=== PATIENT | female | born 1955 | race Hispanic/Latino ===

== ENCOUNTER 2018-08-26 13:02 | Emergency (ER) | payer OTHER ==
[2018-08-26 13:41] LABS: Urine Blood TRACE (NEG); Urine Glucose NEGATIVE (NEG); Urine Protein NEGATIVE (NEG); Urine Specific Gravity 1.015 (1.005-1.030); Urine pH 8.5 (5.0-7.0)
[2018-08-26] MEDS ORDERED: NA CHLORIDE 0.9% 500 ML ONE (14:03)
--- NOTE | 2018-08-26 14:11 | RAD REPORT ---
EXAM DESCRIPTION: RAD - Chest Single View - 08/26/2018 2:06 pm CLINICAL HISTORY: Cough;Abdominal distention Chest pain. COMPARISON: CHEST PA AND LAT 2 VIEW dated 11/10/2005 FINDINGS: Portable technique limits examination quality. Mild interstitial pulmonary edema is present. The heart is normal in size. No displaced fractures. IMPRESSION: No acute intrathoracic process suspected.
--- NOTE | 2018-08-26 14:27 | RAD REPORT ---
EXAM DESCRIPTION: CT - Stone Protocol - 08/26/2018 2:19 pm CLINICAL HISTORY: Flank pain. ABD PAIN COMPARISON: Chest Single View dated 08/26/2018; ABDOMINAL EXAM COMPLETE dated 10/18/2010 TECHNIQUE: Axial images were obtained without oral or IV contrast. Lack of contrast limits solid org an and vascular assessment. The [id number] spans the entirety of the system partially obscuring uppermost abdomen and lung bases. Coronal reformatted images were obtained and reviewed. All CT scans are performed using dose optimization technique as appropriate and may include automated exposure control or mA/KV adjustment according to patient size. FINDINGS: The lung bases are emphysematous with small juxtapleural nodules present. Small hiatal her ezra. Poorly defined low-density lesion in the right lobe liver superiorly measuring 19 mm is seen. Assessm ent is limited by lack contrast, however a lesion was present in this location prior sonography from 2010. No intrahepatic biliary dilatation.The spleen, pancreas and adrenal glands within normal limits . 4 cm benign-appearing left renal cyst is present. No urinary tract stones or obstructive uropathy i dentified. No pathologic lymphadenopathy in the abdomen or pelvis. Fat containing inguinal hernias a re present bilaterally, larger on the right. No bowel obstruction, free air, free fluid or abscess. Normal appendix noted. No significant bony abnormality. IMPRESSION: No acute or worrisome intra-abdominopelvic finding.
[2018-08-26 14:30] LABS: Absolute Lymphocytes (CBC) 2.2 K/uL (0.7-4.9); Absolute Monocytes 0.5 K/uL (0.1-1.3); Absolute Neutrophil 2.1 K/uL (1.8-8.0); Basophils % 1.3 % (0-1.3); Hematocrit 32.8 % (36.0-45.0); Lymphocytes % 42.7 % (15.3-44.8); MCH 32.5 pg (27.0-35.0); MCV 93.4 fL (80-100); MPV 8.3 fL (7.6-11.3); Monocytes % 9.6 % (3.3-12.3); RBC Red Blood Cell Count 3.51 M/uL (3.86-4.86)
[2018-08-26 14:43] LABS: ALT/SGPT 38 U/L (12-78); AST/SGOT 42 U/L (15-37); Albumin 3.5 g/dL (3.4-5.0); Alkaline Phosphatase 61 U/L (45-117); BUN Blood Urea Nitrogen 14 mg/dL (7-18); Bicarbonate 27 mmol/L (21-32); Bilirubin Direct 0.2 mg/dL (0-0.2); Bilirubin Total 0.7 mg/dL (0.2-1.0); Glucose Level 108 mg/dL (74-106); Lipase 172 U/L (73-393); NT PRO-BNP 312 pg/mL (<125); Potassium 3.1 mmol/L (3.5-5.1); Protein, Total 7.7 g/dL (6.4-8.2); Sodium Level 141 mmol/L (136-145); Troponin (Emerg Dept Use Only) < 0.02 ng/mL (0.0-0.045)
--- NOTE | 2018-08-26 15:04 | EDPHYS ---
Physician Documentation [facility] Name: Diana Boyle Age: 63 yrs Sex: Female : 1955 Arrival Date: 08/26/2018 Time: 13:05 Bed 19 Private MD: ED Physician Artis Rodney HPI: 08/26 13:50 This 63 yrs old Female presents to ER via Ambulatory with complaints of deric Abdominal Pain, Back Pain. 13:50 The patient presents with pain that is acute, that is chronic. The symptoms are located deric in the low back, left low back. Onset: The symptoms/episode began/occurred 3 day(s) ago. The pain radiates to the right low back. Associated signs and symptoms: The patient has no apparent associated signs or symptoms. The problem was sustained from unknown cause. Modifying factors: The patient symptoms are alleviated by nothing, the patient symptoms are aggravated by nothing. Severity of symptoms: At their worst the symptoms were mild. The patient has not experienced similar symptoms in the past. Historical: - Allergies: 13:27 PENICILLINS; aj1 - Home Meds: 13:27 losartan 100 mg oral tab 1 tab once daily [Active]; hydrochlorothiazide 50 mg Oral tab aj1 1 tab once daily [Active]; dapsone 25 mg Oral tab 1 tab once daily [Active]; - PMHx: 13:27 Hypertension; aj1 - Immunization history:: Flu vaccine is up to date. - Social history:: Smoking status: Patient/guardian denies using tobacco. - Ebola Screening: : Patient denies travel to an Ebola-affected area in the 21 days before illness onset. - Family history:: not pertinent. ROS: 13:50 Constitutional: Negative for fever, chills, and weight loss, Eyes: Negative for injury, deirc pain, redness, and discharge, ENT: Negative for injury, pain, and discharge, Neck: Negative for injury, pain, and swelling, Cardiovascular: Negative for chest pain, palpitations, and edema, Respiratory: Negative for shortness of breath, cough, wheezing, and pleuritic chest pain, Back: Negative for injury and pain, : Negative for injury, bleeding, discharge, and swelling, MS/Extremity: Negative for injury and deformity, Skin: Negative for injury, rash, and discoloration, Neuro: Negative for headache, weakness, numbness, tingling, and seizure, Psych: Negative for depression, anxiety, suicide ideation, homicidal ideation, and hallucinations, Allergy/Immunology: Negative for hives, rash, and allergies, Endocrine: Negative for neck swelling, polydipsia, polyuria, polyphagia, and marked weight changes, Hematologic/Lymphatic: Negative for swollen nodes, abnormal bleeding, and unusual bruising. 13:50 Abdomen/GI: Positive for abdominal pain, of the right lower quadrant. Exam: 13:50 Constitutional: This is a well developed, well nourished patient who is awake, alert, deric and in no acute distress. Head/Face: Normocephalic, atraumatic. Eyes: Pupils equal round and reactive to light, extra-ocular motions intact. Lids and lashes normal. Conjunctiva and sclera are non-icteric and not injected. Cornea within normal limits. Periorbital areas with no swelling, redness, or edema. ENT: Nares patent. No nasal discharge, no septal abnormalities noted. Tympanic membranes are normal and external auditory canals are clear. Oropharynx with no redness, swelling, or masses, exudates, or evidence of obstruction, uvula midline. Mucous membranes moist. Neck: Trachea midline, no thyromegaly or masses palpated, and no cervical lymphadenopathy. Supple, full range of motion without nuchal rigidity, or vertebral point tenderness. No Meningismus. Chest/axilla: Normal chest wall appearance and motion. Nontender with no deformity. No lesions are appreciated. Cardiovascular: Regular rate and rhythm with a normal S1 and S2. No gallops, murmurs, or rubs. Normal PMI, no JVD. No pulse deficits. Respiratory: Lungs have equal breath sounds bilaterally, clear to auscultation and percussion. No rales, rhonchi or wheezes noted. No increased work of breathing, no retractions or nasal flaring. Back: No spinal tenderness. No costovertebral tenderness. Full range of motion. Female : Normal external genitalia. Skin: Warm, dry with normal turgor. Normal color with no rashes, no lesions, and no evidence of cellulitis. MS/ Extremity: Pulses equal, no cyanosis. Neurovascular intact. Full, normal range of motion. Neuro: Awake and alert, GCS 15, oriented to person, place, time, and situation. Cranial nerves II-XII grossly intact. Motor strength 5/5 in all extremities. Sensory grossly intact. Cerebellar exam normal. Normal gait. Psych: Awake, alert, with orientation to person, place and time. Behavior, mood, and affect are within normal limits. 13:50 Abdomen/GI: Inspection: abdomen appears normal, Bowel sounds: normal, Palpation: mild abdominal tenderness, in the right lower quadrant, Liver: no appreciated palpable abnormalities. Vital Signs: 13:27 BP 156 / 100; Pulse 80; Resp 18; Temp 97.6; Pulse Ox 96% on R/A; Weight 58.97 kg (R); aj1 Pain 8/10; 13:54 BP 159 / 61; Pulse 78; Resp 18; Pulse Ox 99% on R/A; Pain 7/10; em 15:25 BP 147 / 59; Pulse 79; Resp 16; Pulse Ox 98% on R/A; mt MDM: 13:32 Patient medically screened. [facility] 13:53 Data reviewed: vital signs, nurses notes, lab test result(s), EKG, radiologic studies. [facility] 08/26 13:38 Order name: Urine Dipstick--Ancillary (enter results); Complete Time: 13:47 08/26 13:50 Order name: Basic Metabolic Panel; Complete Time: 14:57 [facility] 08/26 13:50 Order name: CBC with Diff; Complete Time: 14:57 [facility] 08/26 13:50 Order name: LFT's; Complete Time: 14:57 [facility] 08/26 13:50 Order name: Magnesium; Complete Time: 14:57 [facility] 08/26 13:50 Order name: NT PRO-BNP; Complete Time: 14:57 [facility] 08/26 13:50 Order name: PT-INR; Complete Time: 14:57 [facility] 08/26 13:50 Order name: Troponin (emerg Dept Use Only); Complete Time: 14:57 [facility] 08/26 13:50 Order name: XRAY Chest (1 view); Complete Time: 14:57 [facility] 08/26 13:50 Order name: Lipase; Complete Time: 14:57 [facility] 08/26 13:50 Order name: CT Stone Protocol; Complete Time: 14:57 [facility] 08/26 13:50 Order name: EKG; Complete Time: 13:50 [facility] 08/26 13:50 Order name: Cardiac monitoring; Complete Time: 14:05 [facility] 08/26 13:50 Order name: EKG - Nurse/Tech; Complete Time: 14:05 [facility] 08/26 13:50 Order name: IV Saline Lock; Complete Time: 14:24 [facility] 08/26 13:50 Order name: Labs collected and sent; Complete Time: 14:24 [facility] 08/26 13:50 Order name: O2 Per Protocol; Complete Time: 14:05 [facility] 08/26 13:50 Order name: O2 Sat Monitoring; Complete Time: 14:05 [facility] 08/26 13:50 Order name: Urine Dipstick-Ancillary (obtain specimen); Complete Time: 13:54 [facility] Administered Medications: Discontinued: NS 0.9% 500 ml IV at bolus once : Drug: NS 0.9% 500 ml Route: IV; Rate: bolus; Site: right forearm; em Disposition: 08/26/18 15:03 Discharged to Home. Impression: Abdominal tenderness, Bilateral inguinal hernia, without obstruction or gangrene, Hypokalemia, Essential (primary) hypertension, Anemia, unspecified, Unspecified combined systolic (congestive) and diastolic (congestive) heart failure. - Condition is Stable. - Discharge Instructions: Abdominal Pain, Adult, Anemia, Nonspecific, Heart Failure, Potassium Content of Foods, Hernia, Adult, Hypertension, Inguinal Hernia, Adult, Syjk-nu-Ydwo, Abdominal Pain, Adult, Hlwx-hc-Wrir, Hypertension, Uben-ji-Zczo, How to Take Your Blood Pressure, Fbnz-oc-Jkhc, Hernia, Adult, Pksy-nj-Fvca, Aspirin and Your Heart, Heart Failure, Ldap-oj-Fgfm, Inguinal Hernia, Adult, Managing Your Hypertension. - Prescriptions for Potassium Chloride 20 meq Oral Packet - take 1 packet by ORAL route once daily 1 packet in 6 (six) ounces of water or juice; Take after meal; 30 packet. - Medication Reconciliation Form, Thank You Letter, Antibiotic Education, Prescription Opioid Use form. - Follow up: Private Physician; When: 2 - 3 days; Reason: Recheck today's complaints, Continuance of care, Re-evaluation by your physician. Follow up: Benij Linares MD; When: 2 - 3 days; Reason: Recheck today's complaints, Re-evaluation by your physician. Follow up: Jonah Galeana MD; When: 2 - 3 days; Reason: Recheck today's complaints, Re-evaluation by your physician. - Problem is new. - Symptoms have improved. Signatures: Dispatcher [employer] America Rodriguez RN RN Artis Ram MD MD cha Munoz, Edgar, IMPORT EXPORT CLERK IMPORT EXPORT CLERK em Corrections: (The following items were deleted from the chart) 15: 15:08/26/2018 15:03 Discharged to Home. Impression: Abdominal tenderness; Bilateral deric inguinal hernia, without obstruction or gangrene; Hypokalemia; Essential (primary) hypertension; Anemia, unspecified; Unspecified combined systolic (congestive) and diastolic (congestive) heart failure. Condition is Stable. Forms are Medication Reconciliation Form, Thank You Letter, Antibiotic Education, Prescription Opioid Use. Follow up: Private Physician; When: 2 - 3 days; Reason: Recheck today's complaints, Continuance of care, Re-evaluation by your physician. Problem is new. Symptoms have improved. [facility] 15: 15:08/26/2018 15:03 Discharged to Home. Impression: Abdominal tenderness; Bilateral deric inguinal hernia, without obstruction or gangrene; Hypokalemia; Essential (primary) hypertension; Anemia, unspecified; Unspecified combined systolic (congestive) and diastolic (congestive) heart failure. Condition is Stable. Discharge Instructions: Abdominal Pain, Adult, Anemia, Nonspecific, Heart Failure, Potassium Content of Foods, Hernia, Adult, Hypertension, Inguinal Hernia, Adult, Orny-sv-Gagd, Abdominal Pain, Adult, Vjcq-ap-Awkr, Hypertension, Nmsj-xj-Ruxd, How to Take Your Blood Pressure, Ocpm-xr-Tuoj, Hernia, Adult, Arrw-fa-Gytn, Aspirin and Your Heart, Heart Failure, Mcck-jn-Vimk, Inguinal Hernia, Adult, Managing Your Hypertension. Prescriptions for Potassium Chloride 20 meq Oral Packet - take 1 packet by ORAL route once daily 1 packet in 6 (six) ounces of water or juice; Take after meal; 30 packet. and Forms are Medication Reconciliation Form, Thank You Letter, Antibiotic Education, Prescription Opioid Use. Follow up: Private Physician; When: 2 - 3 days; Reason: Recheck today's complaints, Continuance of care, Re-evaluation by your physician. Follow up: Benji Linares; When: 2 - 3 days; Reason: Recheck today's complaints, Re-evaluation by your physician. Problem is new. Symptoms have improved. [facility] 15:44 15:08/26/2018 15:03 Discharged to Home. Impression: Abdominal tenderness; Bilateral em inguinal hernia, without obstruction or gangrene; Hypokalemia; Essential (primary) hypertension; Anemia, unspecified; Unspecified combined systolic (congestive) and diastolic (congestive) heart failure. Condition is Stable. Discharge Instructions: Abdominal Pain, Adult, Anemia, Nonspecific, Heart Failure, Potassium Content of Foods, Hernia, Adult, Hypertension, Inguinal Hernia, Adult, Klef-qw-Dbzd, Abdominal Pain, Adult, Phkj-mb-Kgqs, Hypertension, Dznc-dg-Lblj, How to Take Your Blood Pressure, Csft-kq-Okij, Hernia, Adult, Koxk-sy-Naxi, Aspirin and Your Heart, Heart Failure, Tsrg-pe-Rmex, Inguinal Hernia, Adult, Managing Your Hypertension. Prescriptions for Potassium Chloride 20 meq Oral Packet - take 1 packet by ORAL route once daily 1 packet in 6 (six) ounces of water or juice; Take after meal; 30 packet. and Forms are Medication Reconciliation Form, Thank You Letter, Antibiotic Education, Prescription Opioid Use. Follow up: Private Physician; When: 2 - 3 days; Reason: Recheck today's complaints, Continuance of care, Re-evaluation by your physician. Follow up: Benji Linares; When: 2 - 3 days; Reason: Recheck today's complaints, Re-evaluation by your physician. Follow up: Jonah Galeana; When: 2 - 3 days; Reason: Recheck today's complaints, Re-evaluation by your physician. Problem is new. Symptoms have improved. deric
--- NOTE | 2018-08-26 15:04 | ER ---
Nurse's Notes [facility] Name: Diana Boyle Age: 63 yrs Sex: Female : 1955 Arrival Date: 08/26/2018 Time: 13:05 Bed 19 Private MD: Diagnosis: Abdominal tenderness;Bilateral inguinal hernia, without obstruction or gangrene;Hypokalemia;Essential (primary) hypertension;Anemia, unspecified;Unspecified combined systolic (congestive) and diastolic (congestive) heart failure Presentation: 08/26 13:24 Presenting complaint: Patient states: Abdominal pain for the past 6 months, but today aj1 it is worse. She has seen her doctor about this pain, but they have not been able to figure out the cause. Denies N/V/D. Denies fever. Transition of care: patient was not received from another setting of care. Onset of symptoms was January 2018. Risk Assessment: Do you want to hurt yourself or someone else? Patient reports no desire to harm self or others. Initial Sepsis Screen: Does the patient meet any 2 criteria? No. Patient's initial sepsis screen is negative. Does the patient have a suspected source of infection? No. Patient's initial sepsis screen is negative. Care prior to arrival: None. 13:24 Method Of Arrival: Ambulatory aj1 13:24 Acuity: JIMENEZ 3 aj1 Triage Assessment: 13:27 General: Appears in no apparent distress. comfortable, Behavior is calm, cooperative, aj1 appropriate for age. Pain: Complains of pain in abdomen Pain currently is 8 out of 10 on a pain scale. Neuro: Level of Consciousness is awake, alert, obeys commands. Cardiovascular: Patient's skin is warm and dry. Respiratory: Airway is patent Respiratory effort is even, unlabored, Respiratory pattern is regular, symmetrical. GI: Patient currently denies diarrhea, nausea, vomiting. Historical: - Allergies: 13:27 PENICILLINS; aj1 - Home Meds: 13:27 losartan 100 mg oral tab 1 tab once daily [Active]; hydrochlorothiazide 50 mg Oral tab aj1 1 tab once daily [Active]; dapsone 25 mg Oral tab 1 tab once daily [Active]; - PMHx: 13:27 Hypertension; aj1 - Immunization history:: Flu vaccine is up to date. - Social history:: Smoking status: Patient/guardian denies using tobacco. - Ebola Screening: : Patient denies travel to an Ebola-affected area in the 21 days before illness onset. - Family history:: not pertinent. Screenin:48 Abuse screen: Denies threats or abuse. Nutritional screening: No deficits noted. em Tuberculosis screening: No symptoms or risk factors identified. Fall Risk None identified. Assessment: 13:48 General: Appears in no apparent distress. comfortable, Behavior is calm, cooperative, em Denies fever. Pain: Complains of pain in right femoral area. Neuro: Level of Consciousness is awake, alert, obeys commands, Oriented to person, place, time, situation. Cardiovascular: Denies chest pain, Capillary refill < 3 seconds Patient's skin is warm and dry. Respiratory: Airway is patent Respiratory effort is even, unlabored, Respiratory pattern is regular, symmetrical, Breath sounds are clear bilaterally. GI: Abdomen is round non-distended, Bowel sounds present X 4 quads. Abd is soft and non tender X 4 quads. : No signs and/or symptoms were reported regarding the genitourinary system. EENT: No signs and/or symptoms were reported regarding the EENT system. Derm: Skin is intact, Skin is pink, warm \T\ dry. Musculoskeletal: Range of motion: intact in all extremities. 14:00 Reassessment: Patient appears in no apparent distress at this time. I agree with above iw assessment by Ciro Umana LVN. 14:41 Reassessment: Patient appears in no apparent distress at this time. Patient and/or em family updated on plan of care and expected duration. Pain level reassessed. Patient is alert, oriented x 3, equal unlabored respirations, skin warm/dry/pink. 15:40 Reassessment: Patient appears in no apparent distress at this time. Patient and/or em family updated on plan of care and expected duration. Pain level reassessed. Patient is alert, oriented x 3, equal unlabored respirations, skin warm/dry/pink. Vital Signs: 13:27 BP 156 / 100; Pulse 80; Resp 18; Temp 97.6; Pulse Ox 96% on R/A; Weight 58.97 kg (R); aj1 Pain 8/10; 13:54 BP 159 / 61; Pulse 78; Resp 18; Pulse Ox 99% on R/A; Pain 7/10; em 15:25 BP 147 / 59; Pulse 79; Resp 16; Pulse Ox 98% on R/A; mt ED Course: 13:05 Patient arrived in ED. mr 13:25 Triage completed. aj1 13:27 Arm band placed on Patient placed in an exam room. aj1 13:31 Ciro Umana LVN is Primary Nurse. em 13:32 Artis Rodney MD is Attending Physician. [facility] 13:48 Patient has correct armband on for positive identification. Bed in low position. Call em light in reach. Adult w/ patient. 14:06 XRAY Chest (1 view) In Process Unspecified. EDMS 14:10 Initial lab(s) drawn, by nh, sent to lab. Inserted saline lock: 20 gauge in right em antecubital area, using aseptic technique. Blood collected. 14:11 CT completed. Patient moved to CT via wheelchair. Patient moved back from CT. 14:19 CT Stone Protocol In Process Unspecified. EDMS 15:04 Benji Linares MD is Referral Physician. [facility] 15:05 Jonah Galeana MD is Referral Physician. [facility] 15:43 No provider procedures requiring assistance completed. IV discontinued, intact, em bleeding controlled, No redness/swelling at site. Pressure dressing applied. Administered Medications: Discontinued: NS 0.9% 500 ml IV at bolus once 14:25 Drug: NS 0.9% 500 ml Route: IV; Rate: bolus; Site: right forearm; em Outcome: 15:03 Discharge ordered by . [facility] 15:43 Discharged to home ambulatory, with family. em 15:43 Condition: good 15:43 Discharge instructions given to patient, Instructed on discharge instructions, follow up and referral plans. medication usage, Demonstrated understanding of instructions, follow-up care, medications, Prescriptions given X 1. 15:44 Patient left the ED. em Signatures: Dispatcher [employer] America Douglas, RN RN aj1 Artis Rodney MD MD cha Rivera, Iris mr Anna, Candie Ciro Umana LVN LVN em Dee Dee Calle, RN YOVANY Malik, Laurie mt
[2018-08-26] MEDS ORDERED: POTASSIUM 25 MEQ EFFERV TAB ONE (15:18)
--- NOTE | 2018-08-27 07:36 | EKG ---
Test Date: 2018-08-26 Test Time: 13:53:43 Drupal Programmer: NEGRITO MEASUREMENT RESULTS: Intervals: Rate: 77 TN: 154 QRSD: 76 QT: 360 QTc: 407 [place]: P: 62 TN: 154 QRS: 50 T: 53 INTERPRETIVE STATEMENTS: Normal sinus rhythm Normal ECG Compared to ECG 12/04/2010 07:00:17 No significant changes Electronically Signed On 08-27-18 07:36:15 [employer]ISION [employer] SPECIALIST by Benji Linares
== END 2018-08-26 15:44 | disposition home or self-care (01) ==
LOC: ER 13:02
DX: K40.20 Bilateral inguinal hernia, without obstruction or gangrene, not specified as recurrent (principal); E87.6 Hypokalemia; D64.9 Anemia, unspecified; I10 Essential (primary) hypertension; I50.40 Unspecified combined systolic (congestive) and diastolic (congestive) heart failure; Z88.0 Allergy status to penicillin
CPT/HCPCS: 36415; 71045; 74176; 76377; 80048; 80076; 81003; 83690; 83735; 83880; 84484; 85025; 85610; 93005; 99284

== ENCOUNTER 2021-05-15 20:05 | Emergency (ER) | payer OTHER ==
--- OUTSIDE RECORDS SUMMARY | 2021-05-15 20:13 | XMS REPORT | Continuity of Care Document ---
:1955 Author Organization [facility] t Address [address] [id number] Care Team Providers Name Role Phone RISHI MOON M.D. Attending Clinician Unavailable Problems Condition Condition Condition Status Onset Resolution Last Treating Co mments Source Name Details Category Date Date Treatment Clinician Date Encounter Encounter Problem Active Uni vers for for [id number].[id number] it[place] kathleen kathleen Physici examinatio examinatio an s n with n with Papanicola Papanicola ou smear ou smear of cervix of cervix Visit for Visit for Problem Active Uni vers screening screening [id number] [place] [facility] [place] Herpes Problem Active 2021-05-05 Mem[facility] ia simplex 02:02:12 l Herpes [place] simplex Active Problem 05/05/2021 Patrice Jostinaji Asthma, Problem Active 2021-05-05 Matteo martha intermitte 02:02:12 l nt Asthma, [place] intermitte nt Active Problem 1 Patrice Mussaji Asthma Problem Active 2021-05-05 Memor ia with 02:02:12 l exacerbati Asthma Herm lobo on with exacerbati on Active Problem 1 Patrice Jostinatherese Erythema Problem Active 2018-09-18 Mem oria multiforme 03:04:43 l , Erythema Sree n unspecifie multiforme d , unspecifie d Active Problem 09/18/2018 Patrice Jostinatherese Hypertensi Problem Active 2021-05-05 M emoria ve heart 02:02:12 l disease [place] without Hypertensi heart ve heart failure disease without heart failure Active Problem 05/05/2021 Patrice Jostinaji Pure Problem Active 2021-05-05 Mem[facility] ia hyperchole 02:02:12 l sterolemia Pure Sree n hyperchole sterolemia Active Problem 05/05/2021 Patrice Mendoza Asthma Problem Active 2021-05-05 Memor ia without 02:02:12 l acute Asthma Berto exacerbati without on acute exacerbati on Active Problem Patrice Mendoza Vitamin D Problem Active 2021-05-05 Me moria deficiency 02:02:12 l Vitamin [place] D deficiency Active Problem 05/05/2021 Patrice Mendoza Body mass Problem Active 2018-09-18 Me moria index 03:04:43 l 26.0-26.9, Body Sree n adult mass index 26.0-26.9, adult Active Problem 09/18/2018 Patrice Mendoza Erythema Problem Active 2021-05-05 Mem oria multiforme 02:02:12 l Erythema Sree n multiforme Active Problem 05/05/2021 Patrice Mendoza Dyspepsia Problem Active 2021-05-05 Me moria and 02:02:12 l disorder [place] of Dyspepsia function and of stomach disorder of function of stomach Active Problem 05/05/2021 Patrice Mendoza BMI Problem Active 2021-05-05 Memor ia 27.0-27.9, 02:02:12 l adult BMI Berto 27.0-27.9, adult Active Problem 05/05/2021 Patrice Mendoza Herniated Problem Active 2021-05-05 Me moria interverte 02:02:12 l bral disc Berto of lumbar Herniated spine interverte bral disc of lumbar spine Active Problem 05/05/2021 Patrice Mendoza Seasonal Problem Active 2021-05-05 Mem oria allergies 02:02:12 l Seasonal Sree n allergies Active Problem 05/05/2021 Patrice Mendoza Osteoporos Problem Active 2021-05-05 M emoria is 02:02:12 l Berto Osteoporos is Active Problem Patrice Mendoza Right Problem Active 2021-05-05 Memor ia inguinal 02:02:12 l hernia Right Berto inguinal hernia Active Problem 05/05/2021 Patrice Mendoza BMI Problem Active 2021-05-05 Memor ia 28.0-28.9, 02:02:12 l adult BMI [place] 28.0-28.9, adult Active Problem 05/05/2021 Patrice Mendoza Neck pain Diagnosis Active 2018-07-31 Memoria 02:06:47 l Neck Berto pain Active Diagnosis 07/31/2018 Patrice Mendoza Lower back Diagnosis Active 2018-09-11 Memoria pain 03:02:05 l Lower Berto back pain Active Diagnosis 09/11/2018 Patrice Mendoza Vertigo Diagnosis Active 2020-03-10 Me moria 02:05:40 l Vertigo [place] Active Diagnosis 03/10/2020 Patrice Mendoza Right Diagnosis Active 2021-02-23 Mem oria groin pain 02:16:31 l Right [place] groin pain Active Diagnosis 02/23/2021 Patrice Mendoza Cough Diagnosis Active 2019-06-08 Mem oria 02:03:49 l Cough Berto Active Diagnosis 06/08/2019 Patrice Mendoza Hepatitis Diagnosis Active 2018-09-18 Memoria C 03:04:43 l Screening Breto 1947 to Hepatitis 1967 (53 C to 73) Screening 1947 to 1967 (53 to 73) Active Diagnosis 09/18/2018 Patrice Mendoza Prediabete Problem Active 2021-05-05 M emoria s 02:02:12 l B[place] Prediabete s Active Problem 05/05/2021 Patrice Mendoza Breast Diagnosis Active 2021-02-23 Mem oria cancer 02:11:34 l screening Breast Meagan nn cancer screening Active Diagnosis 02/23/2021 Patrice Mendoza Chest pain Diagnosis Active 2021-01-11 Memoria 02:04:14 l Chest Berto pain Active Diagnosis 01/11/2021 Patrice Mendoza Body Mass Problem Active 2016-04-27 Me moria Index 02:01:18 l 26.0-26.9, Body Sree n adult Mass Index 26.0-26.9, adult Active Problem 04/27/2016 Patrice Mendoza Hypertensi Problem Active 2016-04-27 M emoria on, 02:01:18 l uncontroll Sree n ed Hypertensi on, uncontroll ed Active Problem 6 Patrice Mendoza Hyperchole Problem Active 2016-07-23 M emoria steremia 02:13:06 l [place] Hyperchole steremia Active Problem 07/23/2016 Patrice Mendoza PreDiabete Problem Active 2016-04-27 M emoria s 02:01:18 l [place] PreDiabete s Active Problem 04/27/2016 Patrice Mendoza Vitamin D Problem Active 2016-04-27 Me moria Deficiency 02:01:18 l Vitamin Berto D Deficiency Active Problem 04/27/2016 Patrice Mendoza Need for Diagnosis Active 2021-02-23 M emoria prophylact 02:11:34 l ic Need for Sree n vaccinatio prophylact n and ic inoculatio vaccinatio n against n and influenza inoculatio n against influenza Active Diagnosis 02/23/2021 Patrice Mendoza External Diagnosis Active 2021-02-23 M emoria hemorrhoid 02:11:34 l External Sree n hemorrhoid Active Diagnosis 02/23/2021 Patrice Mendoza Screening Diagnosis Active 2021-02-23 Memoria for 02:11:34 l osteoporos Sree n is Screening for osteoporos is Active Diagnosis 02/23/2021 Patrice Mendoza Abnormal Problem Active 2021-05-05 Mem oria mammogram 02:02:12 l of right Abnormal Herm lobo breast mammogram of right breast Active Problem 05/05/2021 Patrice Mendoza Breast Diagnosis Active 2021-04-24 Mem oria mass, 02:02:57 l right Breast Berto mass, right Active Diagnosis 04/24/2021 Patrice Rosatherese Pharyngiti Diagnosis Active 2021-04-10 Memoria s 02:04:46 l [place] Pharyngiti s Active Diagnosis 04/10/2021 Patrice Mendoza URI with Diagnosis Active 2021-04-10 M emoria cough and 02:04:46 l congestion URI with He rmann cough and congestion Active Diagnosis 04/10/2021 Patrice Frankellarry Unspecifie Diagnosis Active 2021-04-16 Memoria d lump in 02:00:19 l the right [place] breast, Unspecifie upper d lump in outer the right quadrant breast, upper outer quadrant Active Diagnosis 04/16/2021 Patrice Rosatherese URI (upper Diagnosis Active 2016-11-08 Memoria respirator 03:25:20 l y URI [place] infection) (upper respirator y infection) Active Diagnosis 11/08/2016 Patrice Mendoza Prediabete Diagnosis Active 2021-02-23 Memoria s DO NOT 02:16:31 l USE Berto Prediabete s DO NOT USE Active Diagnosis 02/23/2021 Patrice Mendoza Routine Diagnosis Active 2021-02-23 Me moria general 02:16:31 l medical Routine Sree n examinatio general n at a [facility] health examinatio care n at a facility health care facility Active Diagnosis 02/23/2021 Patrice Mendoza 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 Family History Family Member Diagnosis Comments Start Date Stop Date Source Mother Family history of [facility] hypertension Physicians Social History Social Habit Start Date Stop Date Quantity Comments Source TobaccoUse: 2016-10-19 00:00:00 2016-10-19 Matteo rial [place] 00:00:00 Smoking Status Start Date Stop Date Source Never smoker [facility] Physicians Medications Ordered Filled Start Stop Current Ordering Indication Dosage Frequency Signature Comments Components Source Medication Medication Date Date Medication? Clinician (SIG) Name Name Vitamin D3 Yes Patrice 1 capsule Memoria 8-04 Mussaji l 02:02: [place] 12 Losartan Yes Patrice take one Me moria Potassium 8-04 Mussaji tablet by l 02:02: mouth once Berto 12 daily Meclizine Yes Patrice 1 tablet M emoria HCl 8-04 Mussaji l 02:02: B[place] 12 Alendronate Yes Patrice 1 tablet Memoria Sodium 8-04 Mussaji l 02:02: B[place] 12 Famotidine Yes Patrice 1 tablet Memoria 8-04 Mussaji l 02:02: Berto Benzonatate Yes Patrice 1 capsule Memoria 8-04 Mussaji as needed l 02:02: Berto Zithromax 0 Yes Patrice 2 tablet M emoria Z-Saulo 8-04 Mussaji on the l 02:02: first day, Berto 12 then 1 tablet daily for 4 days Symbicort 0 Yes Patrice 2 puffs Me moria 5-25 Mussaji l 02:16: [place] Triamcinolo Yes Patrice 1 Mem oria ne 5-25 Mussaji applicatio l Acetonide 02:16: n [place] sparingly to affected area Ventolin Yes Patrice INHALE TWO Memoria HFA 5-25 Mussaji PUFFS BY l 02:16: MOUTH Berto EVERY 4 HOURS NEEDED FOR WHEEZING Lidex Yes Patrice not Memoria 5-25 Mussaji defined l 02:16: Berto Ibuprofen Yes Patrice 1 tablet M emoria 5-25 Mussaji with food l 02:16: or milk Berto 31 D3-50 Yes Patrice TAKE ONE Memor ia 5-25 Mussaji CAPSULE BY l 02:16: MOUTH ONCE Berto 31 A WEEK Dapsone Yes Patrice 1 tablet Mem oria 5-25 Mussaji l 02:16: Berto Naproxen Yes Patrice 1 tablet Me moria 5-25 Mussaji with food l 02:16: or milk as [place] 31 needed Hydrochloro Yes Patrice 1 tablet Memoria thiazide 5-25 Mussaji l 02:16: B[place] Fluticasone 0 Yes Patrice 1 spray in Memoria Propionate 5-25 Mussaji each l 02:11: nostril Berto 34 Xyzal Yes Patrice 1 tablet Memor ia 5-25 Mussaji in the l 02:11: evening B[place] 34 Anusol-HC Yes Patrice 1 Memor ia 5-25 Mussaji applicatio l 02:11: n to Berto 34 affected area Benzonatate Yes Patrice 1 capsule Memoria 5-25 Mussaji as needed l 02:11: B[place] 34 Meclizine Yes Patrice 1 tablet M emoria HCl 6-09 Mussaji l 02:05: [place] 40 Alendronate Yes Patrice 1 tablet Memoria Sodium 6-09 Mussaji l 02:05: Berto 40 Hydrochloro 2018-10 Yes Patrice 1 tablet Memoria thiazide 2-08 Mussaji l 03:03: [place] 30 Naproxen 2018-10 Yes Patrice 1 tablet Me moria 2-08 Mussaji with food l 03:03: or milk as Berto 30 needed Benzonatate 2018-10 Yes Patrice 1 capsule Memoria 2-08 Mussaji as needed l 03:03: B[place] 30 Dapsone 2017-10 Yes Patrice 1 tablet Mem oria 2-18 Mussaji l 03:04: Berto 43 Losartan 2017-10 Yes Patrice TAKE ONE Me moria Potassium 0-28 Mussaji TABLET BY l 02:02: MOUTH ONCE [place] 51 DAILY Amlodipine 2017-10 Yes Patrice 1 tablet Memoria Besylate 0-15 Mussaji l 00:00: B[place] 00 Amlodipine 2017-10 Yes Patrice 1 tablet Memoria Besylate 0-15 Mussaji l 00:00: 00 HydroCHLORO HydroCHLORO Yes R[facility]N. [facility] thiazide 25 thiazide 25 -28 i ty of MG Oral MG Oral 00:00: [place] Tablet Tablet 00 Physici ans Dapsone 25 Dapsone 25 Yes R.N. U nivers MG Oral MG Oral 6-28 ity of Tablet Tablet 00:00: [place] 00 Physici ans Losartan Losartan Yes R.N. Unive rs Potassium Potassium 6-28 ity o f 100 MG Oral 100 MG Oral 00:00: [place] Tablet Tablet 00 Physici ans Methocarbam Yes Patrice 1 tablet Memoria ol 6-16 Mussaji l 02:05: B[place] 44 Tacrolimus Yes Patrice 1 capsule Memoria 6-16 Mussaji l 02:05: [place] 44 Losartan 2018-0 Yes Patrice TAKE ONE Me moria Potassium 1-03 Mussaji TABLET BY l 03:03: MOUTH ONCE [place] 14 DAILY Valacyclovi 0 Yes Patrice 2 tablet Memoria r HCl 1-03 Mussaji l 03:01: B[place] 43 Benzonatate Yes Patrice 1 capsule Memoria 1-03 Mussaji as needed l 03:01: [place] 43 Fluocinolon Yes Patrice 1 Mem oria e Acetonide 1-03 Mussaji applicatio l 03:01: n to [place] 43 affected area as needed Naproxen 2016-10 Yes Patrice 1 tablet Me moria Sodium ER 2-07 Mussaji l 00:00: Berto 00 Doxepin HCl 2016-10 Yes Patrice 2g to Me moria 2-07 Mussaji affected l 00:00: area as [place] 00 needed Diclofenac 2016-10 Yes Patrice 3g Matteo martha Sodium 2-07 Mussaji applicatio l 00:00: n to [place] 00 affected area Metaxalone 2016-10 Yes Patrice 1 tablet Memoria 2-07 Mussaji l 00:00: B[place] 00 Lidocaine 2016-10 Yes Patrice 2g to Matteo martha 2-07 Mussaji affected l 00:00: area as [place] 00 needed Losartan Yes Patrice TAKE ONE Me moria Potassium 2-07 Mussaji TABLET BY l 03:25: MOUTH ONCE Berto 20 DAILY Valacyclovi Yes Patrice 2 tablet Memoria r HCl 2-07 Mussaji l 03:25: [place] 20 Bromfed DM 2017 No Patrice 10 ml as Memoria 2-07 Mussaji needed l 03:25: [place] 20 Vitamin D3 Yes Patrice 1 capsule Memoria 2-07 Mussaji l 03:25: [place] 20 Symbicort Yes Patrice 2 puffs Me moria 2-07 Mussaji l 03:25: [place] 20 Fluocinolon Yes Patrice 1 Mem oria e Acetonide 2-07 Mussaji applicatio l 03:25: n to [place] 20 affected area as needed Benzonatate Yes Patrice 1 capsule Memoria 2-07 Mussaji as needed l 03:25: B[place] 20 Triamcinolo 2017-0 Yes Patrice 1 Mem oria ne 2-07 Mussaji applicatio l Acetonide 03:25: n [place] 20 sparingly to affected area Montelukast 2014-1 Yes Patrice chew and Memoria Sodium 0-23 Mussaji swallow l 00:00: one tablet [place] 00 by mouth once a d Montelukast 2013- Yes Patrice chew and Memoria Sodium 0-23 Mussaji swallow l 00:00: one tablet Berto 00 by mouth once a d Immunizations Ordered Immunization Filled Immunization Date Status Commen ts Source Name Name INFLUENZA 2019-08-20 Completed [facility] FLUZONE>3YRS 0.5ML 00:00:00 Sree n (COMMERCIAL) INFLUENZA HIGH DOSE 2018-07-16 Completed Memor ial >65 ONLY 00:00:00 Berto INFLUENZA >3yrs 2017-07-19 Completed [facility] 00:00:00 [place] Vital Signs Vital Name Observation Time Observation Value Comments Source Heart Rate 2021-04-22 [facility] Sree n 14:15:00 Diastolic (mm Hg) 2021-04-22 [facility] H ermann 14:15:00 Systolic (mm Hg) 2021-04-22 [facility] He rmann 14:15:00 Temperature Oral 2021-04-22 98.1 F [facility] rmann (F) 14:15:00 Weight 2021-04-22 [facility] Sree n 14:15:00 Height 2021-04-22 [facility] Sree n 14:15:00 Heart Rate 2021-03-26 [facility] Sree n 15:45:00 Diastolic (mm Hg) 2021-03-26 [facility] H ermann 15:45:00 Systolic (mm Hg) 2021-03-26 [facility] He rmann 15:45:00 Temperature Oral 2021-03-26 98.3 F [facility] He rmann (F) 15:45:00 Weight 2021-03-26 [facility] Sree n 15:45:00 Height 2021-03-26 [facility] Sree n 15:45:00 Height 2021-03-09 [facility] Sree n 20:45:00 Heart Rate 2020-12-25 [facility] Sree n 15:15:00 Diastolic (mm Hg) 2020-12-25 [facility] H ermann 15:15:00 Systolic (mm Hg) 2020-12-25 [facility] He rmann 15:15:00 Weight 2020-12-25 [facility] Sree n 15:15:00 Height 2020-12-25 [facility] Sree n 15:15:00 Heart Rate 2020-12-18 [facility] Sree n 21:00:00 Diastolic (mm Hg) 2020-12-18 [facility] H ermann 21:00:00 Systolic (mm Hg) 2020-12-18 [facility] He rmann 21:00:00 Temperature Oral 2020-12-18 98.2 F [facility] He rmann (F) 21:00:00 Weight 2020-12-18 [facility] Sree n 21:00:00 Height 2020-12-18 [facility] Sree n 21:00:00 Heart Rate 2020-02-14 [facility] Sree n 15:45:00 Diastolic (mm Hg) 2020-02-14 [facility] H ermann 15:45:00 Systolic (mm Hg) 2020-02-14 [facility] He rmann 15:45:00 Temperature Oral 2020-02-14 97.9 F [facility] He rmann (F) 15:45:00 Weight 2020-02-14 [facility] Sree n 15:45:00 Height 2020-02-14 [facility] Sree n 15:45:00 Heart Rate 2019-08-20 [facility] Sree n 16:00:00 Diastolic (mm Hg) 2019-08-20 [facility] H ermann 16:00:00 Systolic (mm Hg) 2019-08-20 [facility] He rmann 16:00:00 Temperature Oral 2019-08-20 97.6 F [facility] He rmann (F) 16:00:00 Weight 2019-08-20 [facility] Sree n 16:00:00 Height 2019-08-20 [facility] Sree n 16:00:00 Heart Rate 2019-08-20 [facility] Sree n 15:00:00 Diastolic (mm Hg) 2019-08-20 [facility] H ermann 15:00:00 Systolic (mm Hg) 2019-08-20 [facility] He rmann 15:00:00 Temperature Oral 2019-08-20 97.6 F [facility] He rmann (F) 15:00:00 Weight 2019-08-20 [facility] Sree n 15:00:00 Height 2019-08-20 [facility] Sree n 15:00:00 Heart Rate 2019 [facility] Sree n 15:45:00 Diastolic (mm Hg) 2019 [facility] H ermann 15:45:00 Systolic (mm Hg) 2019 [facility] He rmann 15:45:00 Temperature Oral 2019 98.0 F [facility] He rmann (F) 15:45:00 Weight 2019 [facility] Sree n 15:45:00 Height 2019 [facility] Sree n 15:45:00 Heart Rate 2019-01-21 [facility] Sree n 14:30:00 Diastolic (mm Hg) 2019-01-21 [facility] H ermann 14:30:00 Systolic (mm Hg) 2019-01-21 [facility] He rmann 14:30:00 Temperature Oral 2019-01-21 98.6 F [facility] He rmann (F) 14:30:00 Weight 2019-01-21 [facility] Sree n 14:30:00 Height 2019-01-21 [facility] Sree n 14:30:00 Heart Rate 2018-09-06 [facility] Sree n 16:15:00 Diastolic (mm Hg) 2018-09-06 [facility] H ermann 16:15:00 Systolic (mm Hg) 2018-09-06 [facility] He rmann 16:15:00 Temperature Oral 2018-09-06 96.6 F [facility] He rmann (F) 16:15:00 Weight 2018-09-06 [facility] Sree n 16:15:00 Height 2018-09-06 [facility] Sree n 16:15:00 Heart Rate 2018-08-21 [facility] Sree n 20:30:00 Diastolic (mm Hg) 2018-08-21 [facility] H ermann 20:30:00 Systolic (mm Hg) 2018-08-21 [facility] He rmann 20:30:00 Temperature Oral 2018-08-21 97.4 F [facility] He rmann (F) 20:30:00 Weight 2018-08-21 [facility] Sree n 20:30:00 Height 2018-08-21 [facility] Sree n 20:30:00 Heart Rate 2018-07-16 [facility] Sree n 19:15:00 Diastolic (mm Hg) 2018-07-16 [facility] H ermann 19:15:00 Systolic (mm Hg) 2018-07-16 [facility] He rmann 19:15:00 Temperature Oral 2018-07-16 97.9 F [facility] He rmann (F) 19:15:00 Weight 2018-07-16 [facility] Sree n 19:15:00 Height 2018-07-16 [facility] Sree n 19:15:00 Heart Rate 2018-06-05 [facility] Sree n 16:30:00 Diastolic (mm Hg) 2018-06-05 [facility] H ermann 16:30:00 Systolic (mm Hg) 2018-06-05 [facility] Nathaniel rmann 16:30:00 Temperature Oral 2018-06-05 98.2 F [facility] Nathaniel rmann (F) 16:30:00 Weight 2018-06-05 [facility] Sree n 16:30:00 Height 2018-06-05 [facility] Sree n 16:30:00 BP Systolic 2018-03-29 152 mm[Hg] Location: [facility] 10:24:00 Position: [place] Physician s Sitting BP Diastolic 2018-03-29 90 mm[Hg] Location: [facility] 10:24:00 Position: [place] Physician s Sitting Height 2018-03-29 58 [in_us] [facility] 10:24:00 [place] Physician s Weight 2018-03-29 128.375 [lb_av] University o f 10:24:00 [place] Physician s Body Mass Index 2018-03-29 26.83 kg/m2 University o f Calculated 10:24:00 [place] Physician s Temperature 2018-03-29 98.8 [degF] Method: Oral [facility] of 10:24:00 [place] Physician s Heart Rate 2018-03-06 [facility] Sree n 16:30:00 Diastolic (mm Hg) 2018-03-06 [facility] H ermann 16:30:00 Systolic (mm Hg) 2018-03-06 [facility] He rmann 16:30:00 Temperature Oral 2018-03-06 98.0 F [facility] Nathaniel rmann (F) 16:30:00 Weight 2018-03-06 [facility] Sree n 16:30:00 Height 2018-03-06 [facility] Sree n 16:30:00 Heart Rate 2018-02-20 [facility] Sree n 15:15:00 Diastolic (mm Hg) 2018-02-20 [facility] H ermann 15:15:00 Systolic (mm Hg) 2018-02-20 [facility] He rmann 15:15:00 Temperature Oral 2018-02-20 97.4 F [facility] Nathaniel rmann (F) 15:15:00 Weight 2018-02-20 [facility] Sree n 15:15:00 Height 2018-02-20 [facility] Sree n 15:15:00 Heart Rate 2017-09-13 [facility] Sree n 16:45:00 Diastolic (mm Hg) 2017-09-13 [facility] H ermann 16:45:00 Systolic (mm Hg) 2017-09-13 [facility] He rmann 16:45:00 Temperature Oral 2017-09-13 97.6 F [facility] He rmann (F) 16:45:00 Weight 2017-09-13 [facility] Sree n 16:45:00 Height 2017-09-13 [facility] Sree n 16:45:00 Heart Rate 2017-09-07 [facility] Sree n 14:45:00 Diastolic (mm Hg) 2017-09-07 [facility] H ermann 14:45:00 Systolic (mm Hg) 2017-09-07 [facility] He rmann 14:45:00 Temperature Oral 2017-09-07 97.0 F [facility] He rmann (F) 14:45:00 Weight 2017-09-07 [facility] Sree n 14:45:00 Height 2017-09-07 [facility] Sree n 14:45:00 Heart Rate 2017-07-19 [facility] Sree n 16:00:00 Diastolic (mm Hg) 2017-07-19 [facility] H ermann 16:00:00 Systolic (mm Hg) 2017-07-19 [facility] He rmann 16:00:00 Temperature Oral 2017-07-19 97.2 F [facility] He rmann (F) 16:00:00 Weight 2017-07-19 [facility] Sree n 16:00:00 Height 2017-07-19 [facility] Sree n 16:00:00 Heart Rate 2016-10-19 [facility] Sree n 17:00:00 Diastolic (mm Hg) 2016-10-19 [facility] H ermann 17:00:00 Systolic (mm Hg) 2016-10-19 [facility] He rmann 17:00:00 Temperature Oral 2016-10-19 97.1 F [facility] He rmann (F) 17:00:00 Weight 2016-10-19 [facility] Sree n 17:00:00 Height 2016-10-19 [facility] Sree n 17:00:00 Heart Rate 2016-10-14 [facility] Sree n 18:30:00 Diastolic (mm Hg) 2016-10-14 [facility] H ermann 18:30:00 Systolic (mm Hg) 2016-10-14 [facility] He rmann 18:30:00 Temperature Oral 2016-10-14 97.1 F [facility] He rmann (F) 18:30:00 Weight 2016-10-14 Maximiliano Balbuena n 18:30:00 Height 2016-10-14 Maximiliano Balbuena n 18:30:00 Procedures Procedure Date / Time Performed Performing Clinician Crystal angela MA Digital Mamm[facility] 2018-03-29 00:00:00 [facility] Screening Andrea [id number] Physicians Encounters Start End Encounter Admission Attending Care Care Encounter Source Date/Time Date/Time Type Type Clinicians Facility Department ID 2021-04-28 2021-04-28 Outpatient Shadow Shadow [id number] Memoria 10:53:00 10:53:00 [facility] 2021-04-22 2021-04-22 Outpatient Shadow Shadow [id number] Memoria 09:15:00 09:15:00 [facility] 2021-04-20 2021-04-20 Outpatient Shadow Shadow [id number] Memoria 11:44:00 11:44:00 [facility] 2021-04-15 2021-04-15 Outpatient Shadow Shadow [id number] Memoria 15:45:00 15:45:00 [facility] 2021-04-14 2021-04-14 Outpatient Shadow Shadow [id number] Memoria 16:28:00 16:28:00 [facility] 2021-04-14 2021-04-14 Outpatient Shadow Shadow [id number] Memoria 08:50:00 08:50:00 [facility] 2021-04-02 2021-04-02 Outpatient Shadow Shadow [id number] Memoria 14:45:00 14:45:00 [facility] 2021-03-29 2021-03-29 Outpatient Shadow Shadow [id number] Memoria 16:25:00 16:25:00 [facility] 2021-03-26 2021-03-26 Outpatient Shadow Shadow [id number] Mem[facility] 10:45:00 10:45:00 [facility] 2021-03-26 2021-03-26 Outpatient Shadow Shadow [id number] [facility] 10:45:00 10:45:00 [facility] 2021-03-24 2021-03-24 Outpatient Shadow Shadow [id number] [facility] 10:25:00 10:25:00 [facility] 2021-03-18 2021-03-18 Outpatient Shadow Shadow [id number] [facility] 16:15:00 16:15:00 [facility] 2021-03-18 2021-03-18 Outpatient Shadow Shadow [id number] Memoria 09:51:00 09:51:00 [facility] 2021-03-09 2021-03-09 Outpatient Shadow Shadow [id number] [facility] 15:45:00 15:45:00 [facility] 2021-03-04 2021-03-04 Outpatient Shadow Shadow [id number] [facility] 15:01:00 15:01:00 [facility] 2021-01-01 2021-01-01 Outpatient Shadow Shadow [id number] [facility] 09:33:00 09:33:00 [facility] 2020-12-25 2020-12-25 Outpatient Shadow Shadow [id number] [facility] 10:15:00 10:15:00 [facility] 2020-12-25 2020-12-25 Outpatient Shadow Shadow [id number] [facility] 10:15:00 10:15:00 [facility] 2020-12-18 2020-12-18 Outpatient Shadow Shadow [id number] [facility] 16:00:00 16:00:00 [facility] 2020-02-14 2020-02-14 Outpatient Shadow Shadow [id number] [facility] 10:45:00 10:45:00 [facility] 2019-12-09 2019-12-09 Outpatient [facility] [id number] Memoria 14:47:00 14:47:00 [facility] 2019-10-31 2019-10-31 Outpatient [id number] [facility] 08:53:00 08:53:00 2019-09-17 2019-09-17 Outpatient Shadow Shadow [id number] [facility] 08:05:00 08:05:00 [facility] 2019-09-17 2019-09-17 Outpatient Shadow Shadow [id number] [facility] 08:05:00 08:05:00 [facility] 2019-08-20 2019-08-20 Outpatient Shadow Shadow [id number] [facility] 10:00:00 10:00:00 [facility] 2019-08-20 2019-08-20 Outpatient Shadow Shadow [id number] [facility] 10:00:00 10:00:00 [facility] 2019 2019 Outpatient Shadow Shadow [id number] [facility] 10:45:00 10:45:00 [facility] 2019-01-21 2019-01-21 Outpatient Shadow Shadow [id number] [facility] 09:30:00 09:30:00 [facility] 2018-09-13 2018-09-13 Outpatient Shadow Shadow [id number] [facility] 15:11:00 15:11:00 [facility] 2018-09-07 2018-09-07 Outpatient Shadow Shadow [id number] [facility] 14:12:00 14:12:00 [facility] 2018-09-06 2018-09-06 Outpatient Shadow Shadow [id number] [facility] 10:15:00 10:15:00 [facility] 2018-08-21 2018-08-21 Outpatient Shadow Shadow [id number] [facility] 14:30:00 14:30:00 [facility] 2018-07-16 2018-07-16 Outpatient Shadow Shadow [id number] [facility] 14:15:00 14:15:00 [facility] 2018-06-05 2018-06-05 Outpatient Shadow Shadow [id number] [facility] 11:30:00 11:30:00 [facility] 2018-03-29 2018-03-29 AppointKYREE Hunter [id number] [facility] 09:30:00 09:30:00 t; RISHI MOON it[facility] of [place], M.D. [facility] 2018-03-06 2018-03-06 Outpatient Shadow Shadow [id number] [facility] 11:30:00 11:30:00 [facility] 2018-02-22 2018-02-22 Outpatient Shadow Shadow [id number] [facility] 09:43:00 09:43:00 [facility] 2018-02-20 2018-02-20 Outpatient Shadow Shadow [id number] [facility] 10:15:00 10:15:00 [facility] 2017-09-13 2017-09-13 Outpatient Shadow Shadow [id number] [facility] 10:45:00 10:45:00 [facility] 2017-09-07 2017-09-07 Outpatient Shadow Shadow [id number] [facility] 08:45:00 08:45:00 [facility] 2017-07-24 2017-07-24 Outpatient Shadow Shadow [id number] [facility] 12:31:00 12:31:00 [facility] 2017-07-19 2017-07-19 Outpatient Shadow Shadow [id number] [facility] 10:00:00 10:00:00 [facility] 2017-01-23 2017-01-23 Outpatient Shadow Shadow [id number] [facility] 08:36:00 08:36:00 [facility] 2016-10-20 2016-10-20 cbc nullFlavo Patrice [id number] -a [facility] 21:48:00 21:48:00 results moises Jacques 0k1-4254-0 l DO, PA 8n7-02po13 [facility] nn 5q3916 2016-10-20 2016-10-20 cbc nullFlavo Patrice b807nrg9 -5 [facility] 21:48:00 21:48:00 results moises Jacques 5p3-7w83-p l DOREAL 7k3-8b3z42 [facility] nn 5aab1b 2016-10-20 2016-10-20 cbc nullFlavo Patrice 12oz030a -f [facility] 21:48:00 21:48:00 results moises Jacques 86e-4831-a l DO, PA 2cd-310907 [facility] posada 5ef086 2016-10-20 2016-10-20 Outpatient Patrice Patrice [id number] [facility] 15:48:00 15:48:00 Georgie Jacques l DO, REAL NOBLE DO 2016-10-19 2016-10-19 Unknown nullFlavo Patrice 083jvi43 -e [facility] 17:00:00 17:00:00 moises Jacques 5fc-4a06-b teresa CHRISTENSEN, REAL 36e-4bi718 [facility] posada 4e0e8a 2016-10-19 2016-10-19 Unknown nullFlavo Patrice k497qn8o -d [facility] 17:00:00 17:00:00 moises Jacques e64-29ej-b teresa CHRISTENSEN, REAL [id number] [facility] posada 5fd0e4 2016-10-19 2016-10-19 Outpatient Patrice Patrice [id number] [facility] 11:00:00 11:00:00 Georgie Jacques l DO, PA DO, PA Hermann 2016-10-17 2016-10-17 cbc nullFlavo Patrice 14q484t7 -0 [facility] 14:15:00 14:15:00 results moises Jacques 88d-48ea-8 teresa DO, REAL 4j8-9k001g [facility] posada 1dbfb6 2016-10-17 2016-10-17 cbc nullFlavo Patrice 3392nqc6 -c [facility] 14:15:00 14:15:00 results moises Jacques k84-9326-9 teresa DO, REAL 0u9-4tk6ii [facility] posada c521ac 2016-10-17 2016-10-17 cbc nullFlavo Patrice 75m0r23i -2 [facility] 14:15:00 14:15:00 results moises Jacques 164-4746-a teresa CHRISTENSEN, REAL 5db-8b09f8 [facility] posada 8nv735 2016-10-17 2016-10-17 cbc nullFlavo Patrice a87ng0bf -e [facility] 14:15:00 14:15:00 results moises Jacques f2p-5996-9 teresa DO, REAL 1r1-g8x606 [facility] posada 93066o 2016-10-17 2016-10-17 Outpatient Patrice Patrice [id number] [facility] 08:15:00 08:15:00 Georgie Jacques l DO, REAL NOBLE DO 2016-10-14 2016-10-14 cough-WALK nullFlavo Patrice 8ba54 0ee-3 [facility] 18:30:00 18:30:00 IN moises Georgie cf8-4d0a-a REAL moore DO 488-987c88 Meagan f05356 2016-10-14 2016-10-14 cough-WALK nullFlavo Patrice eee58 d70-e [facility] 18:30:00 18:30:00 IN moises Jacques be6-4785-a REAL moore DO 5aa-0b4ba5 Meagan 391216 8100-01-13 2016-10-14 Outpatient Patrice Patrice [id number] [facility] 12:30:00 12:30:00 Georgie Jacques l DO, PA DO, PA Hermann 2016-08-01 2016-08-01 lab nullFlavo Patrice t26c1r9w -4 [facility] 15:20:00 15:20:00 results moises Jacques 749-4aef-a REAL moore DO eab-3dd4bb Meagan 6a97be 2016-08-01 2016-08-01 lab nullFlavo Patrice 79xl201z -8 [facility] 15:20:00 15:20:00 results moises Jacques 3f3-859y-8 REAL moore DO g29-6345c3 [facility] nn 595bbd 2016-08-01 2016-08-01 lab nullFlavo Patrice fvz95t8r -e [facility] 15:20:00 15:20:00 results moises Jacques 37a-4377-a REAL moore DO 74b-5695ef Meagan 86b91f 2016-08-01 2016-08-01 lab nullFlavo Patrice ck1953qr -5 [facility] 15:20:00 15:20:00 results moises Jacques 6i2-4c52-r REAL moore DO mangolia-c7ef5f [facility] nn d0b5e1 2016-08-01 2016-08-01 lab nullFlavo Patrice y3x47i99 -a [facility] 14:20:00 14:20:00 results moises Jacques 227-41b8-b l DO, REAL 1k2-08u0r9 [facility] nn e2c9bf 2016-08-01 2016-08-01 Outpatient Patrice Patrice [id number] [facility] 09:20:00 09:20:00 Georgie Jacques l DO, REAL CHRISTENSEN, REAL Thomson 2016-07-22 2016-07-22 cbc nullFlavo Patrice q5na71m6 -6 [facility] 18:32:00 18:32:00 results moises Jacques 29d-400a-b l DO, REAL 1h7-2u7qh3 [facility] nn e45c57 2016-07-22 2016-07-22 cbc nullFlavo Patrice [id number] -f [facility] 18:32:00 18:32:00 results moises Jacques afb-4038-a l DO, REAL 537-14c4b4 [facility] nn 553b07 2016-07-22 2016-07-22 cbc nullFlavo Patrice 7v4l4911 -f [facility] 18:32:00 18:32:00 results moises Jacques 948-4e8a-a teresa CHRISTENSEN, REAL x5u-449ib1 [facility] nn 91e3a3 2016-07-22 2016-07-22 cbc nullFlavo Patrice 57g8o490 -f [facility] 18:32:00 18:32:00 results moises Jacques k6s-3z57-v l DO, REAL ad7-d0d60e [facility] nn g46857 2016-07-22 2016-07-22 cbc nullFlavo Patrice o7kqt46y -4 [facility] 17:32:00 17:32:00 results moises Jacques 529-4a35-8 l DO, REAL 553-73b53f [facility] nn 036d4e 2016-07-22 2016-07-22 cbc nullFlavo Patrice 9cmamue8 -f [facility] 17:32:00 17:32:00 results moises Jacques 075-4a5f-a l DO, PA 91f-iw3366 [facility] nn 34fb8b 2016-07-22 2016-07-22 Outpatient Patrice Patrice [id number] [facility] 12:32:00 12:32:00 Georgie Jacques, l DO, PA DO, PA Berto 2016-04-26 2016-04-26 lab nullFlavo Patrice o5on834f -2 [facility] 21:08:00 21:08:00 results moises Jacques bfa-42c6-a l DO, PA 9g1-682796 [facility] nn 31ef5e 2016-04-26 2016-04-26 lab nullFlavo Patrice y95sd3y3 -c [facility] 21:08:00 21:08:00 results moises Jacques 584-4a06-8 l DO, PA 685-u0z159 [facility] nn de56fc 2016-04-26 2016-04-26 lab nullFlavo Patrice 9932935q -1 [facility] 21:08:00 21:08:00 results moises Jacques 47b-4f37-9 l DO, PA 1ad-20f7a4 [facility] nn 0ecf94 2016-04-26 2016-04-26 lab nullFlavo Patrice ym3gk501 -1 [facility] 21:08:00 21:08:00 results moises Jacques 6f8-3068-w l DO, PA m8p-n2c5m5 [facility] nn 157bee 2016-04-26 2016-04-26 lab nullFlavo Patrice ssl123m1 -f [facility] 20:08:00 20:08:00 results moises Jacques 09b-45ef-9 l DO, PA y1u-cv5403 [facility] nn e2c30f 2016-04-26 2016-04-26 lab nullFlavo Patrice wj6ukx89 -3 [facility] 20:08:00 20:08:00 results moises Jacques 645-42bd-8 l DO, PA 29e-m6d911 [facility] nn 163c96 2016-04-26 2016-04-26 lab nullFlavo Patrice ak206hj4 -2 [facility] 20:08:00 20:08:00 results r Georgie, 3x9-7qd2-3 l DO, PA ceb-76e23a [facility] nn 660157 6929-07-26 2016-04-26 Outpatient Patrice Patrice [id number] [facility] 15:08:00 15:08:00 Georgie Jacques, l DO, PA DO, REAL Thomson 2016-03-25 2016-03-25 losartan nullFlavo Patrice 64206wk 4-d [facility] 16:06:00 16:06:00 r Georgie c8p-3hui-1 l DO, PA 516-b9aa44 [facility] nn a40dc5 2016-03-25 2016-03-25 losartan nullFlavo Patrice k49454b 7-2 [facility] 16:06:00 16:06:00 moises Jacques 32f-4b5a-b l DO, PA j50-0100n0 [facility] nn 54ce7f 2016-03-25 2016-03-25 losartan nullFlavo Patrice 3w82xk6 c-8 [facility] 16:06:00 16:06:00 r Georgie 542-45ac-b l DO, PA m69-q5317p [facility] nn d840ef 2016-03-25 2016-03-25 losartan nullFlavo Patrice 2252466 e-9 [facility] 16:06:00 16:06:00 moises Jacques 03c-41e4-a l DO, PA o7p-432083 [facility] nn 201dcf 2016-03-25 2016-03-25 losartan nullFlavo Patrice i37167v c-b [facility] 15:06:00 15:06:00 moises Jacques 983-45bb-b l DO, PA 6d1-j007sj [facility] nn 1a7d39 2016-03-25 2016-03-25 losartan nullFlavo Patrice kyf99n7 9-c [facility] 15:06:00 15:06:00 moises Jacques 3ff-472e-8 l DO, PA 0aa-f3c61e [facility] nn 86028w 2016-03-25 2016-03-25 losartan nullFlavo Patrice 951453i 3-3 [facility] 15:06:00 15:06:00 moises Jacques 306-4a51-9 l DO, PA 467-c1a18d [facility] nn 6e4e6c 2016-03-25 2016-03-25 losartan nullFlavo Patrice g7v47m4 f-3 [facility] 15:06:00 15:06:00 moises Jacques dfc-4b17-9 l DO, REAL 5m2-661qn4 [facility] nn 0d21f7 2016-03-25 2016-03-25 Outpatient Patrice Patrice [id number] [facility] 10:06:00 10:06:00 Georgie Jacques l DO, REAL NOBLE DO 2016-01-27 2016-01-27 Lab nullFlavo Patrice ms05t52f -e [facility] 00:10:00 00:10:00 Results moises Jacques k4p-9h08-g l DO, REAL r22-bh933z [facility] nn 92352v 2016-01-27 2016-01-27 Lab nullFlavo Patrice 8168jw0l -a [facility] 00:10:00 00:10:00 Results moises Jacques f48-2k8g-7 l DO, REAL 36d-c944cc [facility] nn 4x7374 2016-01-27 2016-01-27 Lab nullFlavo Patrice 9f89421c -3 [facility] 00:10:00 00:10:00 Results moises Jacques ba7-4f6f-b l DO, REAL i62-j388a7 [facility] nn 3b69fd 2016-01-27 2016-01-27 Lab nullFlavo Patrice o28t6u0u -f [facility] 00:10:00 00:10:00 Results moises Jacques 415-401c-8 l DO, REAL ae8-0e8a48 [facility] nn 222d0a 2016-01-26 2016-01-26 Lab nullFlavo Patrice fu0kg07w -9 [facility] 23:10:00 23:10:00 Results moises Jacques e92-2666-g l DO, REAL q07-836fgy [facility] nn 42q393 2016-01-26 2016-01-26 Lab nullFlavo Patrice 2d825t35 -8 [facility] 23:10:00 23:10:00 Results moises Jacques 75a-484a-8 l DO, PA 6cd-57s887 [facility] nn hn9305 2016-01-26 2016-01-26 Lab nullFlavo Patrice 60602np3 -8 [facility] 23:10:00 23:10:00 Results moises Jacques 06b-462a-8 l DO, PA 867-ee90d0 [facility] nn 9yv007 2016-01-26 2016-01-26 Lab nullFlavo Patrice 3618s700 -7 [facility] 23:10:00 23:10:00 Results moises Jacques 59a-48f3-9 l DO, PA 445-d6fa90 [facility] nn c7cd9b 2016-01-26 2016-01-26 Lab nullFlavo Patrice 2d6yu01y -e [facility] 23:10:00 23:10:00 Results moises Jacques 900-454c-b l DO, PA 385-31e580 [facility] nn 4b58be 2016-01-26 2016-01-26 Outpatient Patrice Patrice [id number] [facility] 18:10:00 18:10:00 Georgie Jacques, l DO, PA DO, REAL Thomson 2016-01-22 2016-01-22 Lab nullFlavo Patrice 0k3h2kn3 -c [facility] 20:05:00 20:05:00 Results moises Jacques 4j2-25q0-1 l DO, PA n8h-k7w291 [facility] nn n29161 2016-01-22 2016-01-22 Lab nullFlavo Patrice cz26pdb3 -5 [facility] 20:05:00 20:05:00 Results moises Jacques afe-47a3-8 l DO, PA e46-qa1l0k [facility] nn 48a4d3 2016-01-22 2016-01-22 Lab nullFlavo Patrice 428g11ld -e [facility] 20:05:00 20:05:00 Results moises Jacques 848-45d4-8 l DO, PA 7i4-87845g [facility] nn abf48c 2016-01-22 2016-01-22 Lab nullFlavo Patrice n56r7wk3 -0 [facility] 20:05:00 20:05:00 Results moises Jacques q5x-097e-9 l DO, PA f1q-3pi5j9 [facility] nn d9338s 2016-01-22 2016-01-22 Lab nullFlavo Patrice df0fyy05 -a [facility] 19:05:00 19:05:00 Results moises Alanistherese 120-44ff-9 l DO, PA 87f-0ac29c [facility] nn vx708i 2016-01-22 2016-01-22 Lab nullFlavo Patrice 98952z99 -f [facility] 19:05:00 19:05:00 Results moises Alanistherese 1f8-31pr-g l DO, PA 25b-447a82 [facility] nn ea9a62 2016-01-22 2016-01-22 Lab nullFlavo Patrice 4o07pthx -c [facility] 19:05:00 19:05:00 Results moises Alanistherese 94a-407a-b l DO, PA 414-24443s [facility] nn 5c26b2 2016-01-22 2016-01-22 Lab nullFlavo Patrice 72640t6r -6 [facility] 19:05:00 19:05:00 Results moises Jacques electrotherapist-4dd7-8 l DO, PA 8o5-a9n4hm [facility] nn 87e4b8 2016-01-22 2016-01-22 Lab nullFlavo Patrice y08g145m -7 [facility] 19:05:00 19:05:00 Results moises Demarcomina 95c-4ece-8 l DO, PA 338-f06a44 [facility] nn d4a0b5 2016-01-22 2016-01-22 Lab nullFlavo Patrice 6536797j -5 [facility] 19:05:00 19:05:00 Results moises Georgie 2de-429a-8 l DO, PA o92-wp458s [facility] nn a04cd8 2016-01-22 2016-01-22 Outpatient Patrice Patrice [id number] [facility] 14:05:00 14:05:00 Georgie Jacques, l DO, PA DO, PA Berto 2016-01-05 2016-01-05 Lab nullFlavo Patrice pd48l060 -7 [facility] 17:30:00 17:30:00 Results moises Jacques 0ed-4200-8 l DO, PA 2ed-6deb38 [facility] nn c1e32d 2016-01-05 2016-01-05 Lab nullFlavo Patrice 5ske3l80 -c [facility] 17:30:00 17:30:00 Results moises Georgie 2d9-5d22-p l DO, PA 7p7-j4pc01 [facility] nn m4324l 2016-01-05 2016-01-05 Lab nullFlavo Patrice 75200044 -b [facility] 17:30:00 17:30:00 Results moises Jacques 86a-4646-b l DO, PA s4t-4odkw7 [facility] nn c48bfe 2016-01-05 2016-01-05 Lab nullFlavo Patrice ewxn0188 -a [facility] 17:30:00 17:30:00 Results moises Georgie 035-41e3-b l DO, PA 7fe-2f22bc [facility] nn 3114b5 2016-01-05 2016-01-05 Lab nullFlavo Patrice q87s32t8 -c [facility] 16:30:00 16:30:00 Results moises Georgie 1ba-42b8-9 l DO, PA 98f-e62d9b [facility] nn 8d6cc1 2016-01-05 2016-01-05 Lab nullFlavo Patrice o122353x -a [facility] 16:30:00 16:30:00 Results moises Jacques 212-4926-b l DO, PA 469-474c88 [facility] nn j7555p 2016-01-05 2016-01-05 Lab nullFlavo Patrice jzby2460 -5 [facility] 16:30:00 16:30:00 Results moises Jacques m65-439x-7 l DO, PA 91a-331eaa [facility] nn ofx153 2016-01-05 2016-01-05 Lab nullFlavo Patrice m9966bj3 -b [facility] 16:30:00 16:30:00 Results moises Jacques 96a-4a12-a l DO, PA 407-h48967 [facility] nn 0b004v 2016-01-05 2016-01-05 Lab nullFlavo Patrice m9f9lz4m -0 [facility] 16:30:00 16:30:00 Results moises Jacques 353-4bf4-b l DO, PA 08f-073f7f [facility] nn 2j360u 2016-01-05 2016-01-05 Lab nullFlavo Patrice 5fr0l03n -f [facility] 16:30:00 16:30:00 Results moises Jacques cb8-488d-8 l DO, REAL s0g-cr4qe0 [facility] nn 7f1246 2016-01-05 2016-01-05 Lab nullFlavo Patrice 11uv8258 -c [facility] 16:30:00 16:30:00 Results moises Jacques q1t-82cn-0 l DO, PA d1u-e9nj8e [facility] nn 232583 1226-04-05 2016-01-05 Outpatient Patrice Patrice [id number] [facility] 11:30:00 11:30:00 Georgie Jacques, l DO, PA DO, REAL Thomson 2015-07-13 2015-07-13 Lab nullFlavo Patrice nin1b537 -0 [facility] 22:36:00 22:36:00 results moises Jacques 0h2-78ho-7 l DO, PA 9l5-9ei9nu [facility] nn 32a2e0 2015-07-13 2015-07-13 Lab nullFlavo Patrice 5l078l1n -f [facility] 22:36:00 22:36:00 results moises Jacques 019-4579-8 l DO, PA 3dd-bc2bb9 [facility] nn 75cfe6 2015-07-13 2015-07-13 Lab nullFlavo Patrice xg681v0t -f [facility] 22:36:00 22:36:00 results moises Jacques 3z1-5rsk-n l DO, REAL h34-66szm7 [facility] nn 012d35 2015-07-13 2015-07-13 Lab nullFlavo Patrice xui5418r -a [facility] 22:36:00 22:36:00 results moises Jacques 273-4c34-9 l DO, PA 9bf-7d4869 [facility] nn h3095h 2015-07-13 2015-07-13 Lab nullFlavo Patrice 958108x6 -6 [facility] 21:36:00 21:36:00 results moises Jacques 8l5-5v09-1 l DO, PA bb2-485f28 [facility] nn 12m124 2015-07-13 2015-07-13 Lab nullFlavo Patrice 505iex8h -1 [facility] 21:36:00 21:36:00 results moises Jacques 806-465c-8 l DO, PA 262-j2d365 [facility] nn hb2818 2015-07-13 2015-07-13 Lab nullFlavo Patrice 832gn3v0 -8 [facility] 21:36:00 21:36:00 results moises Jacques q6u-39yr-d l DO, PA 944-v6u871 [facility] nn 22bca0 2015-07-13 2015-07-13 Lab nullFlavo Patrice 4790s3cw -e [facility] 21:36:00 21:36:00 results moises Jacques 215-41d7-a l DO, PA 08c-39de68 [facility] nn 353f7b 2015-07-13 2015-07-13 Lab nullFlavo Patrice 414t8281 -d [facility] 21:36:00 21:36:00 results moises Jacques 9ac-49b3-8 l DO, PA 0a4-3hq19m [facility] nn 315e66 2015-07-13 2015-07-13 Lab nullFlavo Patrice 4p87589t -0 [facility] 21:36:00 21:36:00 results moises Jacques 570-49fb-9 l DO, PA 7b5-bw7pq1 [facility] nn 5ecbe3 2015-07-13 2015-07-13 Lab nullFlavo Patrice s13hym12 -2 [facility] 21:36:00 21:36:00 results moises Jacques 735-4e1a-a l DO, PA 541-46g903 [facility] nn 5bd59c 2015-03-30 2015-03-30 lab nullFlavo Patrice 0pbsq7j2 -5 [facility] 20:00:00 20:00:00 results moises Jacques 18a-4e16-b l DO, PA 43e-662a29 [facility] nn 9a2cfb 2015-03-30 2015-03-30 lab nullFlavo Patrice cxc6ebl7 -a [facility] 20:00:00 20:00:00 results moises Jacques 6n4-282i-0 l DO, PA g92-778665 [facility] nn 6d3f93 2015-03-30 2015-03-30 lab nullFlavo Patrice 4p6440p3 -1 [facility] 20:00:00 20:00:00 results moises Jacques 119-438e-b l DO, PA 2ee-qcu841 [facility] nn 14635t 2015-03-30 2015-03-30 lab nullFlavo Patrice 6troiq1l -c [facility] 20:00:00 20:00:00 results moises Jacques v35-7699-3 l DO, PA x71-081snh [facility] nn n6l844 2015-03-30 2015-03-30 lab nullFlavo Patrice 36659349 -7 [facility] 19:00:00 19:00:00 results moises Jacques 6q9-3258-f l DO, PA 16b-9324c9 [facility] nn 98ca4b 2015-03-30 2015-03-30 lab nullFlavo Patrice 3m71ofn1 -2 [facility] 19:00:00 19:00:00 results moises Jacques 94c-42a4-8 l DO, PA 816-u94998 [facility] nn 436a23 2015-03-30 2015-03-30 lab nullFlavo Patrice 47342161 -8 [facility] 19:00:00 19:00:00 results moises Jacques faf-4a72-a l DO, PA 432-87e9e8 [facility] nn r21452 2015-03-30 2015-03-30 lab nullFlavo Patrice l1y02b05 -e [facility] 19:00:00 19:00:00 results moises Demarcomina beni-475a-a l DO, PA 958-d7e23f [facility] nn 562e0f 2015-03-30 2015-03-30 lab nullFlavo Patrice e7cu2089 -f [facility] 19:00:00 19:00:00 results moises Demarcomina 61c-4a03-8 l DO, PA 598-cm7974 [facility] nn 19bb3a 2015-03-30 2015-03-30 lab nullFlavo Patrice 4758zc03 -a [facility] 19:00:00 19:00:00 results moises Jacquse f23-4c7f-1 l DO, PA 32a-aa06f4 [facility] nn 9c7b65 2015-03-30 2015-03-30 lab nullFlavo Patrice 92wf5387 -a [facility] 19:00:00 19:00:00 results moises Jacques bde-463b-b l DO, PA ca6-cf8271 [facility] nn e83ae2 2015-03-06 2015-03-06 Needs nullFlavo Patrice 414vbf83 -a [facility] 19:19:00 19:19:00 OV/RP moises Jacques, u4z-9lgu-h l DO, PA b4j-ldj58j [facility] nn 9e14b1 2015-03-06 2015-03-06 Needs nullFlavo Patrice 7rmyn649 -e [facility] 19:19:00 19:19:00 OV/RP moises Jacques w51-0wc4-9 l DO, PA bf2-b2d19c [facility] nn 4cc2bd 2015-03-06 2015-03-06 Needs nullFlavo Patrice 65827237 -2 [facility] 19:19:00 19:19:00 OV/RP moises Jacques i8f-8z06-7 l DO, PA o4p-v6na15 [facility] nn e662ee 2015-03-06 2015-03-06 Needs nullFlavo Patrice 6979i87l -5 [facility] 19:19:00 19:19:00 OV/RP moises Jacques, r90-022v-p l DO, PA l0g-a54imh [facility] nn be21a6 2015-03-06 2015-03-06 Needs nullFlavo Patrice c0860891 -d [facility] 18:19:00 18:19:00 OV/RP r Musajji, 952-4621-9 l DO, PA 142-bd0eb6 [facility] nn 1d4de7 2015-03-06 2015-03-06 Needs nullFlavo Patrice 4u6r859w -5 [facility] 18:19:00 18:19:00 OV/RP r Musajji, ad0-43fa-8 l DO, PA s09-2s42q4 [facility] nn 911ecf 2015-03-06 2015-03-06 Needs nullFlavo Patrice z6jv00lw -2 [facility] 18:19:00 18:19:00 OV/RP r Musajji, 156-4bed-a l DO, PA f81-7vcn92 [facility] nn df2ab9 2015-03-06 2015-03-06 Needs nullFlavo Patrice itx6w688 -3 [facility] 18:19:00 18:19:00 OV/RP r Musajji, 713-4073-b l DO, PA fcc-b94c11 [facility] nn 42f404 2015-03-06 2015-03-06 Needs nullFlavo Patrice qy199y55 -1 [facility] 18:19:00 18:19:00 OV/RP r Musajji, m69-6h9i-1 l DO, PA 06e-a69999 [facility] nn td3585 2015-03-06 2015-03-06 Needs nullFlavo Patrice sa8n1t30 -c [facility] 18:19:00 18:19:00 OV/RP r Musajji, 79e-4e2e-a l DO, PA fb6-b75f30 [facility] nn d0d2ff 2015-03-06 2015-03-06 Needs nullFlavo Patrice q16328ez -6 [facility] 18:19:00 18:19:00 OV/RP r Musajji, ee5-4e74-b l DO, PA 6k4-g7c969 [facility] nn d06ac4 2014-07-28 2014-07-28 Test nullFlavo Patrice 364fev4k -5 [facility] 19:55:00 19:55:00 results moises Davmina 29d-4cd2-b l DO, PA 2cd-fc95d6 [facility] nn 68cac1 2014-07-28 2014-07-28 Test nullFlavo Patrice z5ft5619 -1 [facility] 19:55:00 19:55:00 results moises Georgie 413-4af0-b l DO, PA da7-20aed5 [facility] nn b6bdfc 2014-07-28 2014-07-28 Test nullFlavo Patrice ap5634f9 -6 [facility] 19:55:00 19:55:00 results moises Jacques l3b-2lg7-0 l DO, PA 60d-33082w [facility] nn 027670 7641-10-27 2014-07-28 Test nullFlavo Patrice 544f18h4 -4 [facility] 19:55:00 19:55:00 results moises Georgie, 2k1-4x3c-4 l DO, PA 8db-794db4 [facility] nn cdabf9 2014-07-28 2014-07-28 Test nullFlavo Patrice oj259m79 -8 [facility] 18:55:00 18:55:00 results moises Alanistherese, 50b-47d3-9 l DO, PA z31-ol1309 [facility] nn 7d95bb 2014-07-28 2014-07-28 Test nullFlavo Patrice 1n1x3dti -8 [facility] 18:55:00 18:55:00 results moises Georgie 9ba-4fda-8 l DO, PA ca4-tx893c [facility] nn 3771a4 2014-07-28 2014-07-28 Test nullFlavo Patrice 7506r548 -8 [facility] 18:55:00 18:55:00 results moises Georgie d3u-4y02-6 l DO, PA 312-98g249 [facility] nn 230dbd 2014-07-28 2014-07-28 Test nullFlavo Patrice tpd801t8 -7 [facility] 18:55:00 18:55:00 results moises Jacques 5b3-9u30-9 l DO, PA [id number]-k7096a [facility] nn c25ca4 2014-07-28 2014-07-28 Test nullFlavo Patrice [id number] -3 [facility] 18:55:00 18:55:00 results moises Jacques 95d-4df0-a l DO, PA 73b-44013s [facility] nn 4ebfdd 2014-07-28 2014-07-28 Test nullFlavo Patrice 16zzh551 -b [facility] 18:55:00 18:55:00 results moises Jacques 1x8-8307-n l DO, PA fda-5374ed [facility] nn d7b36e 2014-07-28 2014-07-28 Test nullFlavo Patrice [id number] -5 [facility] 18:55:00 18:55:00 results moises Jacques 8bc-4be9-b l DO, PA 03b-297abe [facility] nn 8a55a8 2014-06-20 2014-06-20 Other nullFlavo Patrice [id number] -7 [facility] 23:00:00 23:00:00 moises Jacques 879-4042-9 l DO, PA 918-d8b47d [facility] nn 5vv999 2014-06-20 2014-06-20 Other nullFlavo Patrice 72f0k158 -4 [facility] 23:00:00 23:00:00 moises Jacques 4g0-2218-8 l DO, PA 760-6dbbbb [facility] nn v7183o 2014-06-20 2014-06-20 Other nullFlavo Patrice 4ko7b984 -e [facility] 23:00:00 23:00:00 moises Jacques paris-4a71-9 l DO, PA 22a-11adc1 [facility] nn [id number] 2014-06-20 2014-06-20 Other nullFlavo Patrice [id number] -c [facility] 23:00:00 23:00:00 moises Jacques 05c-40a5-a l DO, PA 723-e05af2 [facility] nn 52y957 2014-06-20 2014-06-20 Other nullFlavo Patrice [id number] -f [facility] 22:00:00 22:00:00 moises Jacques ba3-4697-9 l DO, PA 806-a810d4 [facility] nn b39be1 2014-06-20 2014-06-20 Other nullFlavo Patrice 146f6pou -e [facility] 22:00:00 22:00:00 moises Jacques 456-4b7e-b l DO, PA 4fd-7ef2c5 [facility] nn c76e7d 2014-06-20 2014-06-20 Other nullFlavo Patrice [id number] -e [facility] 22:00:00 22:00:00 moises Jacques 736-4be0-a l DO, PA 0l4-14h15d [facility] nn 271c01 2014-06-20 2014-06-20 Other nullFlavo Patrice 2t224o19 -c [facility] 22:00:00 22:00:00 moises Jacques 429-4978-b l DO, PA 86a-i88115 [facility] nn a105b9 2014-06-20 2014-06-20 Other nullFlavo Patrice 49l967d5 -3 [facility] 22:00:00 22:00:00 moises Jacques 999-45fe-b l DO, PA 718-2ebf42 [facility] nn 2664d3 2014-06-20 2014-06-20 Other nullFlavo Patrice 048f3y12 -7 [facility] 22:00:00 22:00:00 moises Jacques 793-4498-b l DO, PA 0x1-78tm9z [facility] nn 34e0ce 2014-06-20 2014-06-20 Other nullFlavo Patrice [id number] -d [facility] 22:00:00 22:00:00 moises Jacques 1t8-6hl2-z l DO, PA 198-ee9a7c [facility] nn cef3ce 2014-06-13 2014-06-13 Test nullFlavo Patrice uc8130x5 -7 [facility] 23:12:00 23:12:00 results moises Jacques 419-4dd0-8 l DO, PA 58a-200595 [facility] nn 478b6e 2014-06-13 2014-06-13 Test nullFlavo Patrice 51r0zca9 -e [facility] 23:12:00 23:12:00 results moises Georgie t54-2516-2 l DO, PA 65d-2dcfb4 [facility] nn 6k4750 2014-06-13 2014-06-13 Test nullFlavo Patrice 5i39y4ey -c [facility] 23:12:00 23:12:00 results moises Jacques 9ba-4f6a-b l DO, PA fda-5z468m [place] nn 078140 3130-09-12 2014-06-13 Test nullFlavo Patrice 7vn02n08 -7 [facility] 23:12:00 23:12:00 results moises Jacques i34-321k-6 l DO, PA dfa-n9863c [facility] nn 2dd4de 2014-06-13 2014-06-13 Test nullFlavo Patrice fz1m7yly -1 [facility] 22:12:00 22:12:00 results moises Georgie eaa-430d-b l DO, PA s13-549162 [facility] nn d7dd5a 2014-06-13 2014-06-13 Test nullFlavo Patrice g67lm260 -8 [facility] 22:12:00 22:12:00 results moises Jacques fa4-4f06-a l DO, PA g9o-4m2je4 [facility] nn 56479g 2014-06-13 2014-06-13 Test nullFlavo Patrice cu4023ui -4 [facility] 22:12:00 22:12:00 results moises Jacques dce-411e-8 l DO, PA 48e-5726f9 [facility] nn d945f0 2014-06-13 2014-06-13 Test nullFlavo Patrice [id number] -3 [facility] 22:12:00 22:12:00 results moises Jacques 7n8-3o11-7 l DO, PA 493-22a7b9 [facility] nn [id number] 2014-06-13 2014-06-13 Test nullFlavo Patrice sr81619s -4 [facility] 22:12:00 22:12:00 results moises Jacques, 528-48b7-a l DO, PA 5c9-128q9x [facility] nn b7e04e 2014-06-13 2014-06-13 Test nullFlavo Patrice 8rj0d453 -0 [facility] 22:12:00 22:12:00 results moises Jacques 2z2-31ve-g l DO, PA q94-s48l89 [facility] nn a821aa 2014-06-13 2014-06-13 Test nullFlavo Patrice 56729h92 -f [facility] 22:12:00 22:12:00 results moises Jacques b52-5t20-t l DO, PA 3p1-1rjvj9 [facility] nn 4d0b9d 2014-05-29 2014-05-29 chest xray nullFlavo Patrice 90c7a 2d9-c [facility] 23:26:00 23:26:00 moises Jacques p76-1ib7-8 l DO, PA l7c-41152g [place] nn 73349a 2014-05-29 2014-05-29 chest xray nullFlavo Patrice b6f03 7f4-0 [facility] 23:26:00 23:26:00 moises Jacques 648-483a-9 l DO, PA r9n-471h25 [facility] nn 5be1a0 2014-05-29 2014-05-29 chest xray nullFlavo Patrice eb3e5 4e6-9 [facility] 23:26:00 23:26:00 moises Jacques h89-0wf8-2 l DO, PA 6z1-g63r9b [facility] nn ab0e65 2014-05-29 2014-05-29 chest xray nullFlavo Patrice 51b8b afe-5 [facility] 23:26:00 23:26:00 moises Jacques de6-4781-a l DO, PA v49-71w406 [facility] nn 6u795b 2014-05-29 2014-05-29 chest xray nullFlavo Patrice 78616 02e-4 [facility] 22:26:00 22:26:00 moises Jacques u20-0529-9 l DO, PA 64a-8dfed9 [facility] nn ab22d3 2014-05-29 2014-05-29 chest xray nullFlavo Patrice 5e8db 686-4 [facility] 22:26:00 22:26:00 r Georgie, ca0-4abe-b l DO, PA cc6-5q541l [facility] nn b8aa13 2014-05-29 2014-05-29 chest xray nullFlavo Patrice bbcb1 c69-1 [facility] 22:26:00 22:26:00 r Georgie, j11-1070-t l DO, PA dd3-4ee2ed [facility] nn b3ec9e 2014-05-29 2014-05-29 chest xray nullFlavo Patrice 14ce9 cd8-4 [facility] 22:26:00 22:26:00 r Georgie, 12e-4a69-a l DO, PA fe0-407e4d [facility] nn f30d6e 2014-05-29 2014-05-29 chest xray nullFlavo Patrice c3a20 ef5-1 [facility] 22:26:00 22:26:00 r Georgie, 9r9-77zy-8 l DO, PA 5q9-59375l [facility] nn 182727 2276-08-28 2014-05-29 chest xray nullFlavo Patrice ee018 e46-a [facility] 22:26:00 22:26:00 r Georgie, 303-40ae-a l DO, PA 18c-da9a15 [facility] nn p48416 2014-05-29 2014-05-29 chest xray nullFlavo Patrice 91426 826-c [facility] 22:26:00 22:26:00 r Georgie w88-4164-1 l DO, PA 210-70e21f [facility] nn omp642 2014 2014 Unknown nullFlavo Patrice 9257rk03 -a [facility] 23:11:00 23:11:00 r Georgie, 0u2-774t-a l DO, PA stefanie-8f59c0 [facility] nn 7c3b9d 2014 2014 Unknown nullFlavo Patrice g1dlzp10 -f [facility] 23:11:00 23:11:00 moises Jacques 088-4b1c-9 l DO, PA 2bd-162272 [facility] nn 7j2436 2014 2014 Unknown nullFlavo Patrice 3259fll7 -0 [facility] 23:11:00 23:11:00 moises Jacques, 699-4353-b l DO, PA 0u0-14e6m2 [facility] nn 8nj638 2014 2014 Unknown nullFlavo Patrice 9ud43wgu -a [facility] 23:11:00 23:11:00 moises Jacques s90-2151-m l DO, PA 737-e6b20a [facility] nn f39b64 2014 2014 Unknown nullFlavo Patrice l6l4m7yi -2 [facility] 22:11:00 22:11:00 moises Jacques 169-4b95-9 l DO, PA 16c-6652e5 [facility] nn 13a9c9 2014 2014 Unknown nullFlavo Patrice 2118a59b -0 [facility] 22:11:00 22:11:00 moises Jacques, u6o-3d64-r l DO, PA 7af-1d8057 [facility] nn cabb9b 2014 2014 Unknown nullFlavo Patrice v1a3uwv4 -8 [facility] 22:11:00 22:11:00 moises Jacques, 73b-4cc0-8 l DO, PA 6v4-84hn0k [facility] nn 76r897 2014 2014 Unknown nullFlavo Patrice 506bfaaf -9 [facility] 22:11:00 22:11:00 moises Jacques 8ec-4a27-8 l DO, PA 23b-aebb25 [place] nn 852808 4385-08-20 2014 Unknown nullFlavo Patrice 2l6z24cr -1 [facility] 22:11:00 22:11:00 moises Jacques 532-4123-a l DO, PA 274-5a62b5 [facility] nn 923f60 2014 2014 Unknown nullFlavo Patrice 2hs77pf5 -d [facility] 22:11:00 22:11:00 r Georgie, 55d-4dff-b l DO, PA 913-3d6e86 [facility] nn d9ca83 2014 2014 Unknown nullFlavo Patrice gad9508c -4 [facility] 22:11:00 22:11:00 r Georgie, j6j-7b71-3 l DO, PA w91-3w6hem [facility] nn 9g063v 2014-04-16 2014-04-16 Unknown nullFlavo Patrice v5encc07 -9 [facility] 15:58:00 15:58:00 r Georgie, 340-4727-9 l DO, PA b2c-58moj7 [facility] nn 3f27d2 2014-04-16 2014-04-16 Unknown nullFlavo Patrice 94g50923 -b [facility] 15:58:00 15:58:00 r Georgie, 36a-4156-9 l DO, PA 380-659037 [facility] nn ba22c7 2014-04-16 2014-04-16 Unknown nullFlavo Patrice 27fg68v9 -6 [facility] 15:58:00 15:58:00 r Georgie, 13d-4793-8 l DO, PA b05-f9600u [facility] nn 65e4f1 2014-04-16 2014-04-16 Unknown nullFlavo Patrice 619q23x8 -1 [facility] 15:58:00 15:58:00 r Georgie, aed-4ca0-8 l DO, PA 74b-55ef73 [facility] nn 855c9a 2014-04-16 2014-04-16 Unknown nullFlavo Patrice 5vi92b24 -a [facility] 14:58:00 14:58:00 r Georgie, m47-0f29-0 l DO, PA l5m-02709s [facility] nn 987f6f 2014-04-16 2014-04-16 Unknown nullFlavo Patrice p14e7s59 -1 [facility] 14:58:00 14:58:00 r Georgie, 00d-445e-b l DO, PA 124-6d43b7 [facility] nn 736124 7512-07-16 2014-04-16 Unknown nullFlavo Patrice 1yf0f5n0 -3 [facility] 14:58:00 14:58:00 r Georgie, 069-4107-a l DO, PA g75-28cw5w [facility] nn 52cd01 2014-04-16 2014-04-16 Unknown nullFlavo Patrice 1c6ir424 -c [facility] 14:58:00 14:58:00 r Georgie, 068-4100-a l DO, PA 02d-68ae54 [facility] nn c74150 2014-04-16 2014-04-16 Unknown nullFlavo Patrice 556rv7u9 -6 [facility] 14:58:00 14:58:00 r Georgie, 812-43fd-8 l DO, PA r7z-jjp587 [facility] nn 552773 9856-07-16 2014-04-16 Unknown nullFlavo Patrice 45x696s7 -a [facility] 14:58:00 14:58:00 r Georgie, 614-4448-8 l DO, PA 7k5-4lv971 [facility] nn d964dc 2014-04-16 2014-04-16 Unknown nullFlavo Patrice 253w3640 -6 [facility] 14:58:00 14:58:00 r Georgie, q4k-589h-3 l DO, PA 3d2-04l8lg [facility] nn 207644 3066-07-08 2014-04-08 Unknown nullFlavo Patrice k18w672g -8 [facility] 18:17:00 18:17:00 r Georgie, 32d-4ec9-b l DO, PA 782-18e8ca [facility] nn e8deb4 2014-04-08 2014-04-08 Unknown nullFlavo Patrice 361en9hz -0 [facility] 18:17:00 18:17:00 r Georgie, 34d-406d-8 l DO, PA 3x5-kf6j23 [facility] nn 4p5151 2014-04-08 2014-04-08 Unknown nullFlavo Patrice 2jet6t2u -0 [facility] 18:17:00 18:17:00 r Georgie 540-42da-a l DO, PA 105-abe9fb [facility] nn cb012g 2014-04-08 2014-04-08 Unknown nullFlavo Patrice 6s3lx63a -a [facility] 18:17:00 18:17:00 r Georgie cf4-4601-9 l DO, PA 821-73p617 [facility] d580ef 2014-04-08 2014-04-08 Unknown nullFlavo Patrice b9s2m756 -6 [facility] 17:17:00 17:17:00 r Georgie 52e-4bcc-8 l DO, PA 334-48b19d [facility] 314579 8261-07-08 2014-04-08 Unknown nullFlavo Patrice 59l5694o -1 [facility] 17:17:00 17:17:00 moises Jacques 84a-4570-a l DO, PA 7ff-b111b0 [facility] nn 868195 1914-07-08 2014-04-08 Unknown nullFlavo Patrice 86101e4v -a [facility] 17:17:00 17:17:00 r Georgie cf6-419c-a l DO, PA 538-0a4afc [facility] 8t6483 2014-04-08 2014-04-08 Unknown nullFlavo Patrice 2h0v183u -e [facility] 17:17:00 17:17:00 moises Jacques f33-506n-s l DO, PA cd9-075648 [facility] nn e247fe 2014-04-08 2014-04-08 Unknown nullFlavo Patrice rhtyip03 -2 [facility] 17:17:00 17:17:00 r Georgie 269-436e-a l DO, PA 1u0-794597 [facility] 4683e4 2014-04-08 2014-04-08 Unknown nullFlavo Patrice 04w4zr01 -4 [facility] 17:17:00 17:17:00 moises Jacques t4r-3608-e l DO, PA 0cc-90361v [facility] 0a04af 2014-04-08 2014-04-08 Unknown nullFlavo Patrice o5diq692 -6 [facility] 17:17:00 17:17:00 r Georgie, cab-48f0-8 l DO, PA d7l-213ux3 [facility] nn 7ad7a0 2014-03-11 2014-03-11 Unknown nullFlavo Patrice l1i88902 -a [facility] 18:36:00 18:36:00 r Georgie, 0d7-1061-8 l DO, PA l1f-4fq7kg [facility] nn 736fa4 2014-03-11 2014-03-11 Unknown nullFlavo Patrice 5226z509 -f [facility] 18:36:00 18:36:00 r Georgie, d8u-8961-l l DO, PA 503-b8fadb [facility] nn 9c1c95 2014-03-11 2014-03-11 Unknown nullFlavo Patrice l1749t8o -8 [facility] 18:36:00 18:36:00 r Georgie, c97-9k91-3 l DO, PA x01-49939m [facility] nn f238ce 2014-03-11 2014-03-11 Unknown nullFlavo Patrice pr9518g5 -4 [facility] 18:36:00 18:36:00 r Georgie, 582-4773-b l DO, PA 299-83d59d [facility] nn ced24c 2014-03-11 2014-03-11 Unknown nullFlavo Patrice 523j752f -2 [facility] 17:36:00 17:36:00 r Georgie, 567-428c-9 l DO, PA 13d-f46ce5 [facility] nn 85df38 2014-03-11 2014-03-11 Unknown nullFlavo Patrice 8r60244o -f [facility] 17:36:00 17:36:00 r Georgie, y8f-6c44-8 l DO, PA 2d1-1844n0 [facility] nn 79511r 2014-03-11 2014-03-11 Unknown nullFlavo Patrice f8e10rq3 -1 [facility] 17:36:00 17:36:00 r Davmina, bec-4d3b-a l DO, PA 4s8-f2040e [facility] nn 0ff09e 2014-03-11 2014-03-11 Unknown nullFlavo Patrice dj434909 -7 [facility] 17:36:00 17:36:00 r Zeketherese, 333-4a5b-b l DO, PA 303-86ccb0 [facility] nn 472b84 2014-03-11 2014-03-11 Unknown nullFlavo Patrice 1gr49015 -9 [facility] 17:36:00 17:36:00 r Georgie, ee3-491f-a l DO, PA y5y-1f0a4o [facility] nn 8447fa 2014-03-11 2014-03-11 Unknown nullFlavo Patrice 1l0448qs -f [facility] 17:36:00 17:36:00 r Georgie, cb1-41a2-a l DO, PA 5a5-39216e [facility] nn 710152 6167-06-10 2014-03-11 Unknown nullFlavo Patrice 94lltf8b -9 [facility] 17:36:00 17:36:00 r Georgie, 2eb-4c4a-8 l DO, PA cd4-8l271q [facility] nn z4480h 2014-03-05 2014-03-05 Other nullFlavo Patrice 8pel15g7 -d [facility] 17:41:00 17:41:00 r Georgie, 8d1-9y5g-2 l DO, PA 4be-0737d6 [facility] nn ea88b2 2014-03-05 2014-03-05 Other nullFlavo Patrice 221pb99t -c [facility] 17:41:00 17:41:00 r Georgie, 840-4402-a l DO, PA 16d-05caf7 [facility] nn c4h223 2014-03-05 2014-03-05 Other nullFlavo Patrice x4534p82 -a [facility] 17:41:00 17:41:00 r Davmina, bca-49c7-9 l DO, PA 6m7-7iakhn [facility] nn ef3c94 2014-03-05 2014-03-05 Other nullFlavo Patrice e6718f37 -0 [facility] 17:41:00 17:41:00 r Georgie 22a-4c72-8 l DO, PA i8b-ol0u17 [facility] nn 276ed3 2014-03-05 2014-03-05 Other nullFlavo Patrice 06i29450 -c [facility] 16:41:00 16:41:00 r Georgie 10e-4128-a l DO, PA 27c-5e85d5 [facility] nn a1451q 2014-03-05 2014-03-05 Other nullFlavo Patrice 48ah3z52 -c [facility] 16:41:00 16:41:00 moises Jacques acb-4711-9 l DO, PA cb8-cb33db [facility] nn 161c52 2014-03-05 2014-03-05 Other nullFlavo Patrice 71t32qe0 -e [facility] 16:41:00 16:41:00 moises Jacques 497-4a63-8 l DO, PA 975-90634c [facility] nn 154789 0166-06-04 2014-03-05 Other nullFlavo Patrice rvsk0624 -8 [facility] 16:41:00 16:41:00 moises Jacques 005-4c3e-a l DO, PA 36d-ffce04 [facility] nn 0ap466 2014-03-05 2014-03-05 Other nullFlavo Patrice 0y09u4kw -0 [facility] 16:41:00 16:41:00 moises Jacques, 482-408e-a l DO, PA 58e-819ea9 [facility] nn c6e6ff 2014-03-05 2014-03-05 Other nullFlavo Patrice o59025dh -d [facility] 16:41:00 16:41:00 moises Jacques 5x3-62v7-2 l DO, PA 03b-efe41b [facility] nn bdfc1d 2014-03-05 2014-03-05 Other nullFlavo Patrice 9954433z -b [facility] 16:41:00 16:41:00 r Georgie i5b-6495-p l DO, PA 3fa-eb8a3b [facility] nn bc88f1 2014-03-03 2014-03-03 Test nullFlavo Patrice kvl3e19j -8 [facility] 20:47:00 20:47:00 results moises Demarcoleoniesergio f10-14vq-4 l DO, PA k21-5k0232 [facility] nn ty9437 2014-03-03 2014-03-03 Test nullFlavo Patrice 6vf5776p -f [facility] 20:47:00 20:47:00 results moises Georgie k74-9h0q-s l DO, PA 1bb-edbcbc [facility] nn 95ed2e 2014-03-03 2014-03-03 Test nullFlavo Patrice 053d0c0h -9 [facility] 20:47:00 20:47:00 results moises Georgie 34c-4f06-9 l DO, PA 787-46196c [facility] nn 9466d1 2014-03-03 2014-03-03 Test nullFlavo Patrice qa5fl997 -9 [facility] 20:47:00 20:47:00 results moises Georgie 7n8-0672-2 l DO, PA 8i9-2zdm95 [facility] nn 65b59d 2014-03-03 2014-03-03 Test nullFlavo Patrice a64501n2 -8 [facility] 19:47:00 19:47:00 results moises Georgie abd-4184-9 l DO, PA 560-cf6d58 [facility] nn ffec55 2014-03-03 2014-03-03 Test nullFlavo Patrice h0026429 -5 [facility] 19:47:00 19:47:00 results moises Georgie bfc-487e-8 l DO, PA ef9-de32bc [facility] cbae29 2014-03-03 2014-03-03 Test nullFlavo Patrice kt8njss2 -5 [facility] 19:47:00 19:47:00 results moises Georgie 935-4835-8 l DO, PA 6k6-i71760 [facility] nn aafaa3 2014-03-03 2014-03-03 Test nullFlavo Patrice 3n486567 -0 [facility] 19:47:00 19:47:00 results moises Jacques 2a1-9890-4 l DO, REAL bb8-4s657b [facility] nn 6648cb 2014-03-03 2014-03-03 Test nullFlavo Patrice 9o0y292g -f [facility] 19:47:00 19:47:00 results moises Jacques 8t5-6g83-c l DO, REAL dce-83ac8f [facility] nn 07ba4d 2014-03-03 2014-03-03 Test nullFlavo Patrice d2y69279 -f [facility] 19:47:00 19:47:00 results moises Jacques 3bf-438d-b l DO, REAL 6l1-js874a [facility] nn 8e00f4 2014-03-03 2014-03-03 Test nullFlavo Patrice td29vo3m -0 [facility] 19:47:00 19:47:00 results moises Jacques bc4-451b-8 l DO, REAL ff9-1add28 [facility] nn 40cd34 2014-01-20 2014-01-20 Mammogram nullFlavo Patrice 17092r 9f-9 [facility] 15:08:00 15:08:00 Test moises Jacques v41-3x36-7 l results DO, REAL 314-10dea8 [facility] nn 0y2939 2014-01-20 2014-01-20 Mammogram nullFlavo Patrice 02cb3a 8e-1 [facility] 15:08:00 15:08:00 Test moises Jacques 0y5-62u3-d l results DO, REAL 90a-7375fb [facility] nn 221a4c 2014-01-20 2014-01-20 Mammogram nullFlavo Patrice dfa36b 81-3 [facility] 15:08:00 15:08:00 Test moises Jacques 761-4f99-9 l results DO, REAL 69e-e620f0 [facility] nn 2c4aa6 2014-01-20 2014-01-20 Mammogram nullFlavo Patrice a92a2d 07-6 [facility] 15:08:00 15:08:00 Test moises Jacques eac-40bb-b l results DO, REAL u38-8a09sr [facility] y9557n 2014-01-20 2014-01-20 Mammogram nullFlavo Patrice 4d7e06 7d-9 [facility] 14:08:00 14:08:00 Test r Georgie d56-475k-r l results DO, REAL 7n7-2qddp5 [facility] 86bb3a 2014-01-20 2014-01-20 Mammogram nullFlavo Patrice 75fc54 49-8 [facility] 14:08:00 14:08:00 Test r Georgie dc8-481c-a l results DO, REAL e58-7qve6z [facility] di2797 2014-01-20 2014-01-20 Mammogram nullFlavo Patrice ad897f 2a-3 [facility] 14:08:00 14:08:00 Test r Georgie 0ec-4b3c-9 l results DO, REAL 33a-c373f7 [facility] nn cc62b7 2014-01-20 2014-01-20 Mammogram nullFlavo Patrice 03z277 42-b [facility] 14:08:00 14:08:00 Test r Georgie g7i-00p3-c l results DO, REAL 5fd-5708bc [facility] po825y 2014-01-20 2014-01-20 Mammogram nullFlavo Patrice 0f78b0 46-8 [facility] 14:08:00 14:08:00 Test r Georgie g56-99o2-3 l results DO, REAL 1ff-de0da0 [facility] nn ce36b0 2014-01-20 2014-01-20 Mammogram nullFlavo Patrice 7v5762 b0-0 [facility] 14:08:00 14:08:00 Test r Georgie 171-4d5e-8 l results DO, PA 407-b89fa4 [facility] nn 200aa7 2014-01-20 2014-01-20 Mammogram nullFlavo Patrice 5a5cfa 9d-a [facility] 14:08:00 14:08:00 Test r Georgie 5t4-1760-0 l results DO, REAL cce-pt379z [facility] e692a5 2013-11-13 2013-11-13 Other nullFlavo Patrice g7258v39 -8 [facility] 21:50:00 21:50:00 r Georgie p23-4098-1 l DO, PA 263-76e868 [facility] nn 2ed7e8 2013-11-13 2013-11-13 Other nullFlavo Patrice r8om5x5u -d [facility] 21:50:00 21:50:00 moises Jacques 14f-4e78-9 l DO, PA w98-7uool8 [facility] nn c675e0 2013-11-13 2013-11-13 Other nullFlavo Patrice c8r6e9mp -5 [facility] 21:50:00 21:50:00 r Georgie r5p-84wa-0 l DO, PA 19b-5fq080 [facility] dbdd0f 2013-11-13 2013-11-13 Other nullFlavo Patrice 02w53t6c -7 [facility] 21:50:00 21:50:00 moises Jacques 8eb-41b0-b l DO, PA 157-1d26e3 [facility] nn 338964 3989-02-12 2013-11-13 Other nullFlavo Patrice u626m6ny -6 [facility] 20:50:00 20:50:00 moises Jacques adf-4e05-9 l DO, PA 055-d504b3 [facility] nn 947360 0679-02-12 2013-11-13 Other nullFlavo Patrice 619m198f -6 [facility] 20:50:00 20:50:00 moises Jacques e28-0802-o l DO, PA 818-9e04c5 [facility] nn oh2189 2013-11-13 2013-11-13 Other nullFlavo Patrice 193h8r82 -9 [facility] 20:50:00 20:50:00 moises Jacques 9n1-109k-3 l DO, PA 7x8-6vm00u [facility] aebb3a 2013-11-13 2013-11-13 Other nullFlavo Patrice 61ru057j -1 [facility] 20:50:00 20:50:00 moises Jacques elisa-4634-b l DO, PA 34d-56b0cc [facility] nn 976648 6826-02-12 2013-11-13 Other nullFlavo Patrice 61w0sh48 -d [facility] 20:50:00 20:50:00 r Georgie, 374-41b3-8 l DO, PA ab9-2f12a3 [facility] nn 5222c9 2013-11-13 2013-11-13 Other nullFlavo Patrice 37o23786 -2 [facility] 20:50:00 20:50:00 r Georgie, 20c-4f6d-8 l DO, PA dac-132679 [facility] nn s7z220 2013-11-13 2013-11-13 Other nullFlavo Patrice 73lx57s8 -f [facility] 20:50:00 20:50:00 r Georgie, c64-1i15-j l DO, PA ba0-0o177i [facility] nn 4c2ee3 2013-10-07 2013-10-07 Unknown nullFlavo Patrice 4630i949 -a [facility] 21:52:00 21:52:00 r Zeketherese, v28-4a55-6 l DO, PA r48-91j0h4 [facility] nn 3b5a23 2013-10-07 2013-10-07 Unknown nullFlavo Patrice w818656e -8 [facility] 21:52:00 21:52:00 r Georgie, 0fe-4442-9 l DO, PA 3cf-fbeffd [facility] nn cfb6c9 2013-10-07 2013-10-07 Unknown nullFlavo Patrice 3zg0s2h2 -e [facility] 21:52:00 21:52:00 r Zeketherese, 9f3-27o0-0 l DO, PA v3z-wi1a78 [facility] 7c7a6e 2013-10-07 2013-10-07 Unknown nullFlavo Patrice b581e3j3 -a [facility] 21:52:00 21:52:00 r Zeketherese, j75-923g-v l DO, PA 2cc-9tv036 [facility] nn 13eb4c 2013-10-07 2013-10-07 Unknown nullFlavo Patrice 92g7uh00 -7 [facility] 20:52:00 20:52:00 r Georgie, 0r0-4d72-y l DO, PA 2c0-54270r [facility] nn 7c73eb 2013-10-07 2013-10-07 Unknown nullFlavo Patrice xx656o45 -1 [facility] 20:52:00 20:52:00 r Georgie, 944-4c4f-b l DO, PA 7ef-bv0452 [facility] nn 640235 4073-01-06 2013-10-07 Unknown nullFlavo Patrice lx96u8so -a [facility] 20:52:00 20:52:00 r Georgie, 687-4caa-b l DO, PA 9j4-3285wl [facility] nn 6c37e3 2013-10-07 2013-10-07 Unknown nullFlavo Patrice b737ce9w -5 [facility] 20:52:00 20:52:00 r Georgie f5e-4b78-r l DO, PA 881-52ef41 [facility] nn 2d8a2c 2013-10-07 2013-10-07 Unknown nullFlavo Patrice 950bi3jt -d [facility] 20:52:00 20:52:00 r Georgie 207-482a-a l DO, PA cc7-ad4c68 [facility] b96cb9 2013-10-07 2013-10-07 Unknown nullFlavo Patrice 0li343x0 -a [facility] 20:52:00 20:52:00 r Georgie 359-454b-8 l DO, PA 7aa-894b8f [facility] nn 864c5a 2013-10-07 2013-10-07 Unknown nullFlavo Patrice c536ig36 -d [facility] 20:52:00 20:52:00 r Georgie, 0j2-14m6-c l DO, PA 4k6-gc1925 [facility] edebc7 2013-09-19 2013-09-19 Other nullFlavo Patrice gd524zo7 -b [facility] 18:10:00 18:10:00 r Georgie 5p4-4458-n l DO, PA 1ea-e7a7e5 [facility] 9771ca 2013-09-19 2013-09-19 Other nullFlavo Patrice 1154t6d2 -9 [facility] 18:10:00 18:10:00 moises Jacques l90-1990-q l DO, PA 7a1-3682tz [facility] nn 13k809 2013-09-19 2013-09-19 Other nullFlavo Patrice 5892a746 -4 [facility] 18:10:00 18:10:00 moises Jacques m47-3a4p-z l DO, PA 1u2-xx417b [facility] nn 2z4577 2013-09-19 2013-09-19 Other nullFlavo Patrice u2kl8788 -6 [facility] 18:10:00 18:10:00 moises Jacques l26-324f-1 l DO, PA 445-d2fb39 [facility] nn e2b40b 2013-09-19 2013-09-19 Other nullFlavo Patrice 205i5h52 -8 [facility] 17:10:00 17:10:00 moises Jacques 979-481d-b l DO, PA 574-212331 [facility] nn 142e89 2013-09-19 2013-09-19 Other nullFlavo Patrice 3667822z -d [facility] 17:10:00 17:10:00 moises Jacques p0r-3z26-a l DO, PA 119-8ec26b [facility] nn ib818k 2013-09-19 2013-09-19 Other nullFlavo Patrice 04028809 -d [facility] 17:10:00 17:10:00 moises Jacques 8q7-999e-g l DO, PA 8t2-i13581 [facility] nn 4c85c3 2013-09-19 2013-09-19 Other nullFlavo Patrice 75e58u81 -d [facility] 17:10:00 17:10:00 moises Jacques o15-7zom-t l DO, PA 3ff-0c22f1 [facility] 7ef9fc 2013-09-19 2013-09-19 Other nullFlavo Patrice ug2s0810 -0 [facility] 17:10:00 17:10:00 moises Jacques 4n3-9u16-x l DO, PA d9n-48544h [facility] nn f84a71 2013-09-19 2013-09-19 Other nullFlavo Patrice k41526p3 -c [facility] 17:10:00 17:10:00 moises Demarcoleoniesergio, d5j-6622-8 l DO, PA 9s6-77738y [facility] bb9f9d 2013-09-19 2013-09-19 Other nullFlavo Patrice b7v4tti0 -d [facility] 17:10:00 17:10:00 moises Demarcomina, 538-4059-b l DO, PA 868-9ym231 [facility] nn 94b5a5 2013-08-12 2013-08-12 Test nullFlavo Patrice phxr8w33 -8 [facility] 17:30:00 17:30:00 results moises Jacques, 077-41b0-b l DO, PA 690-d920ce [facility] nn 1ig503 2013-08-12 2013-08-12 Test nullFlavo Patrice 7vn9gxr9 -b [facility] 17:30:00 17:30:00 results moises Jacques, 472-4a38-b l DO, PA 03c-a376eb [facility] nn b39ee2 2013-08-12 2013-08-12 Test nullFlavo Patrice h433lq9k -5 [facility] 17:30:00 17:30:00 results moises Jacques n64-5ojz-j l DO, PA 8s6-168468 [facility] nn v36675 2013-08-12 2013-08-12 Test nullFlavo Patrice n7f35773 -4 [facility] 17:30:00 17:30:00 results moises Jacques, 42e-4e53-b l DO, PA 8n2-9cp466 [facility] nn 066319 3063-11-11 2013-08-12 Test nullFlavo Patrice t5460149 -1 [facility] 16:30:00 16:30:00 results moises Jacques 113-4406-8 l DO, PA cba-j95813 [facility] nn 9634fd 2013-08-12 2013-08-12 Test nullFlavo Patrice 0v91tore -4 [facility] 16:30:00 16:30:00 results moises Jacques 278-4dc2-9 l DO, PA eeb-0e890a [facility] nn [id number] 2013-08-12 2013-08-12 Test nullFlavo Patrice [id number] -7 [facility] 16:30:00 16:30:00 results moises Jacques 2v1-621n-6 l DO, PA 8x8-71jt2q [facility] nn [id number] 2013-08-12 2013-08-12 Test nullFlavo Patrice [id number] -4 [facility] 16:30:00 16:30:00 results moises Jacques 067-41e9-b l DO, PA [id number]-[id number] [facility] posada [id number] 2013-08-12 2013-08-12 Test nullFlavo Patrice [id number] -a [facility] 16:30:00 16:30:00 results moises Jacques 635-4f0e-a l DO, PA 6p2-q214l6 [facility] nn [id number] 2013-08-12 2013-08-12 Test nullFlavo Patrice [id number] -2 [facility] 16:30:00 16:30:00 results moises Jacques 9ab-499f-9 l DO, PA [id number] [facility] nn cd7a4d 2013-08-12 2013-08-12 Test nullFlavo Patrice [id number] -e [facility] 16:30:00 16:30:00 results moises Jacques 2t7-273m-n l DO, PA [id number]-[id number] [facility] b01aba 2013-08-09 2013-08-09 Test nullFlavo Patrice 80930a4m -8 [facility] 21:08:00 21:08:00 results moises Jacques 6s2-8ty4-9 l DO, PA [id number] [facility] [id number] 2013-08-09 2013-08-09 Test nullFlavo Patrice 52yo8jh6 -4 [facility] 21:08:00 21:08:00 results moises Jacques 834-4740-b l DO, PA c7g-2qlyx0 [facility] nn [id number] 2013-08-09 2013-08-09 Test nullFlavo Patrice 8vz04n2w -5 [facility] 21:08:00 21:08:00 results moises Georgie 423-448b-8 l DO, PA 3w2-8rxt6n [facility] nn 6ce7d6 2013-08-09 2013-08-09 Test nullFlavo Patrice 36r55w59 -5 [facility] 21:08:00 21:08:00 results moises Jacques eef-451e-a l DO, PA eb2-4481c1 [facility] nn 99b5c1 2013-08-09 2013-08-09 Test nullFlavo Patrice [id number] -a [facility] 20:08:00 20:08:00 results moises Jacques 7cb-4069-a l DO, PA 827-1ce52c [facility] nn [id number] 2013-08-09 2013-08-09 Test nullFlavo Patrice [id number] -b [facility] 20:08:00 20:08:00 results moises Jacques ae4-4557-a l DO, PA ee1-004889 [facility] nn [id number] 2013-08-09 2013-08-09 Test nullFlavo Patrice 2p6300w5 -0 [facility] 20:08:00 20:08:00 results moises Jacques x2l-6868-n l DO, PA acb-2b87c8 [facility] nn [id number] 2013-08-09 2013-08-09 Test nullFlavo Patrice 3pe1f41q -a [facility] 20:08:00 20:08:00 results moises Jacques m9q-4lu0-k l DO, PA 895-2fl571 [place] nn 425334 8522-11-08 2013-08-09 Test nullFlavo Patrice z07m1s4x -9 [facility] 20:08:00 20:08:00 results moises Jacques 6z8-51jw-i l DO, PA 4c3-724pot [facility] nn cc4c0d 2013-08-09 2013-08-09 Test nullFlavo Patrice 8o237ytv -a [facility] 20:08:00 20:08:00 results moises Jacques 5bb-4bae-8 l DO, PA 82a-e7c1d4 [facility] nn [id number] 2013-08-09 2013-08-09 Test nullFlavharish Ibrahim sh456jvs -d [facility] 20:08:00 20:08:00 results moises Jacques 418-4a78-9 l DO, REAL cec-1aedad [facility] nn [id number] Results Test Description Test Time Test Comments Results Result Sourc e Comments MA Digital Mammo 2018-05-03 BILATERAL DIGITAL [employer] [facility] Screen Andrea w 3 SCREENING MAMMOGRAM William as destinee [id number] 12:41:00 3D/2D WITH CAD: Physician s 05/24/2018CLINICAL: /Routine. Current study was evaluated with a Computer Aided Detection (CAD) system. COMPARISON:Comparison is made to exams dated: 10/29/2015 mammogram, 01/08/2014mammogram - [facility], and 01/07/2005 mammogram. TECHNIQUE: Digital Breast Tomosynthesis was performed and utilized forInterpretation. Current study was also evaluated with a Computer AidedDetection (CAD) system.FINDINGS:The tissue of both breasts is heterogeneously dense, which could obscuredetection of small masses. There are benign vascular calcifications in both breasts. No significant masses, calcifications, or other findings are seen in eitherbreast. There has been no significant interval change.IMPRESSION: BENIGNRECOMMENDATION: There is no mammographic evidence of malignancy. A 1 yearscreening mammogram is recommended.(05/25/20 19) This exam was interpreted [id number] at [facility]. [facility].Tresa manning/penita:05/24/2018 14:56:17 Neon Sign Mechanic(s): Joan Valdes [facility] BI-RADS 1/2 Dense Mammogram BI-RADS: 2 Benign--Read by: Tresa Yostictated Date/time: 05/24/18 14:56Electronically Signed by: Tresa Yost MD 05/24/1814:56FINAL REPORT [H] Pap Liquid-based w/ HPV 2018-03-29 22:29:01 Test Item Value Reference Range Interpretation Comme nts Pap Diagnosis (test code = Comment N EGATIVE FOR INTRAEPITHELIAL LESION 93770-0) AND MALIGNANCY. Specimen Adequacy (test code = Comment Satisfactory for evaluation. Specimen Adequacy) Endocervi kathleen component may not bedistinguished in cases of atrophy. Pap Performed By (test code = Comment Jenae Chicas, Supervisory Pap Performed By) Cytotechno logist (ASCP)Reviewed at: [facility] SecurityBon [facility] [place] [address] [facility] [address] Pap Comment (test code = Pap Comment The Pap smear is a screening test Comment) designed to aid in thedetection of premalignant an d malignant conditions of t heuterine cervix. It is not a sandy gnostic procedure andshould not b e used as the sole means of detect ing cervicalcancer. Both false-posi tive and false-negative reports dooccur. Elder Methodology (test code = Comment This liquid based ThinPrep(R) pap Elder Methodology) test was s creened withthe use of an image guided sy stem. HPV Aptima (test code = Negative Negative This test detects fourteen 47886-5) high-risk HPV types(16/18/31/ 33/35/39/45/ 51/52/56/58/59/ 66/68) withoutdifferen tiation.Source...... .......CervixLM P / Prev Treat...NoneNo. of containers..01 ThinPrep VialPe rformed At: [facility] [id number] [place], [place] [id number] Taylor MD Ph:[phone] rformed At: [facility] [id number] [place], [place] [id number] Taylor MD Ph:[phone] Source Pap (test code = Source CERVIX Pap) Date of LMP (test code = Date N/A of LMP) Previous Treatment (test code NONE = Previous Treatment) [facility]
--- NOTE | 2021-05-15 22:00 | RAD REPORT ---
EXAM DESCRIPTION: RAD - Chest Single View - 05/15/2021 9:35 pm CLINICAL HISTORY: CHEST PAIN COMPARISON: Portable August 2018 TECHNIQUE: AP portable chest image was obtained 05/15/2021 9:35 pm . FINDINGS: Lungs are clear. Interstitial pattern matches comparison. Heart and vasculature are normal . No measurable pleural effusion and no pneumothorax. No acute bony abnormality seen. No acute aortic findings suspected. IMPRESSION: No acute cardiopulmonary process. No significant change from comparison study.
--- NOTE | 2021-05-15 22:07 | RAD REPORT ---
EXAM DESCRIPTION: CT - Head Brain Wo Cont - 05/15/2021 10:01 pm CLINICAL HISTORY: HEADACHE COMPARISON: HEAD BRAIN W O CONTRAST dated 09/30/2008 TECHNIQUE: Axial 5 mm thick images of the head were obtained without IV contrast. All CT scans are performed using dose optimization technique as appropriate and may include automated exposure control or mA/KV adjustment according to patient size. FINDINGS: No intracranial hemorrhage, mass, edema or shift of mid-line structures. No acute infarcti on changes seen. No abnormal extra-axial fluid collections. Minimal atrophy and minimal chronic ische jeb change evident. Ventricles are normal. Mastoid air cells and visualized portions of the paranasal sinuses are clear. No acute bony findings. IMPRESSION: Negative non-contrast CT head examination for acute finding. No significant change from remote comparison.
[2021-05-15] MEDS ORDERED: NA CHLORIDE 0.9% 500 ML ONE (22:31)
[2021-05-15 22:32] LABS: Absolute Lymphocytes (CBC) 1.6 K/uL (0.7-4.9); Basophils % 0.2 % (0-1.3); Hematocrit 36.8 % (36.0-45.0); Lymphocytes % 32.3 % (15.3-44.8); MPV 7.6 fL (7.6-11.3); RBC Red Blood Cell Count 4.07 M/uL (3.86-4.86)
[2021-05-15 22:33] LABS: Protime INR 0.98
[2021-05-15 22:52] LABS: ALT/SGPT 28 U/L (12-78); AST/SGOT 26 U/L (15-37); Albumin 3.9 g/dL (3.4-5.0); Alkaline Phosphatase 86 U/L (45-117); BUN Blood Urea Nitrogen 11 mg/dL (7-18); Bicarbonate 26 mmol/L (21-32); Bilirubin Direct 0.1 mg/dL (0-0.2); Bilirubin Total 0.6 mg/dL (0.2-1.0); Glucose Level 111 mg/dL (74-106); NT PRO-BNP 110 pg/mL (<125); Potassium 3.7 mmol/L (3.5-5.1); Protein, Total 8.5 g/dL (6.4-8.2); Sodium Level 142 mmol/L (136-145); Troponin (Emerg Dept Use Only) < 0.02 ng/mL (0.0-0.045)
[2021-05-15] MEDS ORDERED: NA CHLORIDE 0.9% 0 ML ONE (23:26)
[2021-05-15] MEDS ORDERED: NITROGLYCERIN 0.4 MG/TAB SL ONE (23:27)
[2021-05-15] MEDS ORDERED: ACETAMINOPHEN 500 MG TAB ONE (23:27)
[2021-05-15] MEDS ORDERED: ASPIRIN 81 MG CHEWABLE TABLET ONE (23:27)
[2021-05-15] MEDS ORDERED: METOPROLOL TARTRATE 5 MG/5 ML INJ IV ONE (23:33)
[2021-05-15] MEDS ORDERED: METOPROLOL TAR 25 MG TAB ONE (23:33)
--- NOTE | 2021-05-15 23:53 | ER ---
Nurse's Notes [facility] Name: Diana Boyle Age: 65 yrs Sex: Female : 1955 Arrival Date: 05/15/2021 Time: 20:08 Bed 30 Private MD: Diagnosis: Angina pectoris, unspecified;Hypertensive heart disease without heart failure Presentation: 05/15 20:40 Chief complaint: Patient states: reports chest pain, back pain, and headache, denies em N/V that started today after working. Coronavirus screen: Client denies travel out of the [place] in the last 14 days. Ebola Screen: Patient negative for fever greater than or equal to 101.5 degrees Fahrenheit, and additional compatible Ebola Virus Disease symptoms Patient denies exposure to infectious person. Patient denies travel to an Ebola-affected area in the 21 days before illness onset. No symptoms or risks identified at this time. Initial Sepsis Screen: Does the patient meet any 2 criteria? No. Patient's initial sepsis screen is negative. Does the patient have a suspected source of infection? No. Patient's initial sepsis screen is negative. Risk Assessment: Do you want to hurt yourself or someone else? Patient reports no desire to harm self or others. Onset of symptoms was May 15, 2021. 20:40 Method Of Arrival: Ambulatory em 20:40 Acuity: JIMENEZ 2 em Historical: - Allergies: 20:42 PENICILLINS; em - PMHx: 20:42 Hypertension; em - PSHx: 20:42 hernia repair; em - Immunization history:: Client reports receiving the 2nd dose of the Covid vaccine. - Social history:: Smoking status: Patient denies any tobacco usage or history of. Screenin:45 Abuse screen: Denies threats or abuse. Nutritional screening: No deficits noted. jb4 Tuberculosis screening: No symptoms or risk factors identified. Fall Risk None identified. Assessment: 21:45 General: Appears in no apparent distress. comfortable, Behavior is calm, cooperative, jb4 appropriate for age. Pain: Complains of pain in chest Pain does not radiate. Pain currently is 0 out of 10 on a pain scale. Neuro: Level of Consciousness is awake, alert, obeys commands, Oriented to person, place, time, situation. Cardiovascular: Patient's skin is warm and dry. Respiratory: Airway is patent Respiratory effort is even, unlabored, Respiratory pattern is regular, symmetrical. GI: No signs and/or symptoms were reported involving the gastrointestinal system. : No signs and/or symptoms were reported regarding the genitourinary system. EENT: No signs and/or symptoms were reported regarding the EENT system. Derm: Skin is intact, Skin is pink, warm \T\ dry. Musculoskeletal: Circulation, motion, and sensation intact. Range of motion: intact in all extremities. 23:00 Reassessment: Patient appears in no apparent distress at this time. Patient and/or jb4 family updated on plan of care and expected duration. Pain level reassessed. Patient is alert, oriented x 3, equal unlabored respirations, skin warm/dry/pink. 05/16 00:00 Reassessment: Patient appears in no apparent distress at this time. Patient and/or jb4 family updated on plan of care and expected duration. Pain level reassessed. Patient is alert, oriented x 3, equal unlabored respirations, skin warm/dry/pink. 01:00 Reassessment: Patient appears in no apparent distress at this time. Patient and/or jb4 family updated on plan of care and expected duration. Pain level reassessed. Patient is alert, oriented x 3, equal unlabored respirations, skin warm/dry/pink. 02:15 Reassessment: Patient appears in no apparent distress at this time. Patient and/or jb4 family updated on plan of care and expected duration. Pain level reassessed. Patient is alert, oriented x 3, equal unlabored respirations, skin warm/dry/pink. Vital Signs: 05/15 20:40 BP 206 / 87; Pulse 86; Resp 18; Temp 97.8; Pulse Ox 99% on R/A; em 23:48 BP 159 / 73; Pulse 73; Resp 18; Temp 97.8(O); Pulse Ox 100% on R/A; mw2 05/16 00:45 BP 178 / 64; Pulse 63; Resp 16; Pulse Ox 98% on R/A; jb4 ED Course: 05/15 20:08 Patient arrived in ED. bp1 20:42 Triage completed. em 20:42 Arm band placed on. em 20:49 EKG done, by ED staff, reviewed by Hector Simpson MD. Patient maintains SpO2 saturation em greater than 95% on room air. 21:29 Artis Hernandez PA is PHCP. cp 21:29 Hector Simpson MD is Attending Physician. cp 21:34 XRAY Chest (1 view) In Process Unspecified. EDMS 21:45 Patient has correct armband on for positive identification. environmental monitoring specialist on. Pulse jb4 ox on. NIBP on. 21:56 Ang Pulido, RN is Primary Nurse. jb4 22:01 CT Head Brain wo Cont In Process Unspecified. EDMS 23:35 initiated a transfer with Benjy from [facility]. mw2 23:49 CT Aorta for Dissection In Process Unspecified. EDMS 05/16 00:24 connected Artis NOBLE with Dr. Little from [facility]. mw2 01:17 administrative approval given by Benjy Friend/ patient has been accepted to [address] [place] bed 1405/ Dr. Little accepted the patient in transfer/ report to be called to [phone]. 02:30 No provider procedures requiring assistance completed. Patient transferred, IV remains jb4 in place. Administered Medications: 05/15 22:35 Drug: NS 0.9% 500 ml Route: IV; Rate: 500 ml/hr; Site: right antecubital; jb4 23:07 Not Given (Physician Discretion): Nitroglycerin 0.4 mg Sublingual once cp 23:14 Drug: Tylenol 1000 mg Route: PO; jb4 23:14 Drug: Aspirin Chewable Tablet 324 mg Route: PO; jb4 23:14 Drug: Lopressor (metoprolol TARTRATE)) 25 mg Route: PO; jb4 23:14 Drug: Lopressor (metoprolol) 5 mg Route: IVP; Site: right antecubital; jb4 Outcome: 23:53 ER care complete, transfer ordered by . cp 05/16 02:15 Transferred by ground EMS to [facility], Transfer form completed. jb4 X-rays sent w/ patient. Condition: stable Discharge instructions given to patient, Instructed on the need for transfer, Demonstrated understanding of instructions. 02:31 Patient left the ED. jb4 Signatures: Dispatcher [employer] Ciro Ledesma RN RN Artis Hernandez PA PA cp Ang Pulido RN RN jb4 Zarina Jose mw2 Rachell Eastman bp1 Corrections: (The following items were deleted from the chart) 05/15 23:52 23:48 BP 99 / 83; Pulse 73bpm; Resp 18bpm; Pulse Ox 100% RA; Temp 97.8F Oral; mw2 mw2
--- NOTE | 2021-05-15 23:53 | EDPHYS ---
Physician Documentation [facility] Name: Diana Boyle Age: 65 yrs Sex: Female : 1955 Arrival Date: 05/15/2021 Time: 20:08 Bed 30 Private MD: ED Physician Hector Simpson HPI: 05/15 21:45 This 65 yrs old Female presents to ER via Ambulatory with complaints of Chest cp Pain > 30 y/o, Headache. 21:45 The patient or guardian reports chest pain that is located primarily in the substernal cp area. 21:45 Onset: this morning. cp 21:45 The pain radiates to back. Associated signs and symptoms: Pertinent positives: cp abdominal pain, headache, Pertinent negatives: cough, diaphoresis, dizziness, lower extremity pain, lower extremity swelling, shortness of breath, syncope. 21:45 The chest pain is described as aching. Duration: The patient or guardian reports a cp single episode. 21:45 Severity of pain: in the emergency department the pain has resolved. cp Historical: - Allergies: 20:42 PENICILLINS; em - PMHx: 20:42 Hypertension; em - PSHx: 20:42 hernia repair; em - Immunization history:: Client reports receiving the 2nd dose of the Covid vaccine. - Social history:: Smoking status: Patient denies any tobacco usage or history of. ROS: 21:50 Constitutional: Negative for body aches, chills, fever, poor PO intake. cp 21:50 Cardiovascular: Positive for chest pain, Negative for edema, palpitations. cp 21:50 Respiratory: Negative for cough, shortness of breath, wheezing. 21:50 Abdomen/GI: Positive for abdominal pain, Negative for vomiting, diarrhea, constipation. 21:50 Neuro: Positive for headache, Negative for altered mental status, weakness. 21:50 Back: Positive for radiated pain. cp 21:50 MS/extremity: Negative for paresthesias. cp 21:50 All other systems are negative. Exam: 20:55 ECG was reviewed by the Attending Physician. cp 21:55 Constitutional: The patient appears in no acute distress, alert, awake, cp non-diaphoretic, non-toxic, well developed, well nourished. 21:55 Head/Face: Normocephalic, atraumatic. cp 21:55 Eyes: Periorbital structures: appear normal, Conjunctiva: normal, no exudate, no injection, Sclera: no appreciated abnormality, Lids and lashes: appear normal, bilaterally. 21:55 ENT: External ear(s): are unremarkable, Nose: is normal, Mouth: Lips: moist, Oral mucosa: moist, Posterior pharynx: Airway: no evidence of obstruction, patent. 21:55 Neck: ROM/movement: is normal, is supple, without pain, no range of motions limitations. 21:55 Chest/axilla: Inspection: normal, Palpation: is normal, no crepitus, no tenderness. 21:55 Cardiovascular: Rate: normal, Rhythm: regular, Pulses: Pulses are 2+ in right radial artery and left radial artery. Edema: is not appreciated, JVD: is not appreciated. 21:55 Respiratory: the patient does not display signs of respiratory distress, Respirations: normal, no use of accessory muscles, no retractions, labored breathing, is not present, Breath sounds: are clear throughout, no decreased breath sounds, no stridor, no wheezing. 21:55 Abdomen/GI: Inspection: abdomen appears normal, Bowel sounds: active, all quadrants, Palpation: soft, in all quadrants, mild abdominal tenderness, in the anterior aspect of left lateral abdomen, rebound tenderness, is not appreciated, involuntary guarding, is not appreciated. 21:55 Back: pain, that is mild, ROM is normal. 21:55 Skin: no rash present. 21:55 Neuro: Orientation: to person, place \T\ time. Mentation: is normal, Cerebellar function: is grossly normal, Motor: moves all fours, strength is normal, Sensation: is normal. 22:37 ECG was reviewed by the Attending Physician. cp Vital Signs: 20:40 BP 206 / 87; Pulse 86; Resp 18; Temp 97.8; Pulse Ox 99% on R/A; em 23:48 BP 159 / 73; Pulse 73; Resp 18; Temp 97.8(O); Pulse Ox 100% on R/A; mw2 05/16 00:45 BP 178 / 64; Pulse 63; Resp 16; Pulse Ox 98% on R/A; jb4 MDM: 05/15 21:39 Patient medically screened. cp 22:00 Differential diagnosis: acute myocardial infarction, cholecystitis, Cholelithiasis cp pancreatitis, peptic ulcer disease, pneumonia, pneumothorax, pulmonary embolus, stable angina, thoracic aortic disection, unstable angina. 05/16 00:00 The patient was given aspirin in the Emergency Department. cp 00:00 Data reviewed: vital signs, nurses notes, lab test result(s), EKG, radiologic studies, cp plain films. Test interpretation: by ED physician or midlevel provider: ECG, plain radiologic studies. ED course: Vital Signs stable. Patient reports chest pain resolved. Discussed admission with Jeovany Douglas nurse practitioner hospitalist and warehouse technician Ольга, who requested patient be transferred to [facility] for observation for chest pain.. 05/15 21:14 Order name: Basic Metabolic Panel; Complete Time: 22:56 cp 05/15 22:57 Interpretation: Normal except: CL 111; GLUC 111; CRE 0.54. cp 05/15 21:14 Order name: CBC with Diff; Complete Time: 22:56 cp 05/15 21:14 Order name: LFT's; Complete Time: 22:56 cp 05/15 22:57 Interpretation: Normal except: TP 8.5; GLOB 4.6; A/G 0.8. cp 05/15 21:14 Order name: Magnesium; Complete Time: 22:56 cp 05/15 21:14 Order name: NT PRO-BNP; Complete Time: 22:56 cp 05/15 21:14 Order name: PT-INR; Complete Time: 22:56 cp 05/15 21:14 Order name: Troponin (emerg Dept Use Only); Complete Time: 22:56 cp 05/15 21:14 Order name: XRAY Chest (1 view); Complete Time: 22:19 cp 05/15 21:39 Order name: CT Head Brain wo Cont; Complete Time: 22:19 cp 05/15 23:09 Order name: CT Aorta for Dissection cp 05/15 23:47 Order name: SARS-COV-2 RT PCR; Complete Time: 00:25 EDMS 05/15 21:14 Order name: EKG; Complete Time: 21:14 cp 05/15 21:14 Order name: Cardiac monitoring; Complete Time: 22:54 cp 05/15 21:14 Order name: EKG - Nurse/Tech; Complete Time: 22:54 cp 05/15 21:14 Order name: IV Saline Lock; Complete Time: 22:54 cp 05/15 21:14 Order name: Labs collected and sent; Complete Time: 22:54 cp 05/15 21:14 Order name: O2 Per Protocol; Complete Time: 22:05 cp 05/15 21:14 Order name: O2 Sat Monitoring; Complete Time: 22:05 cp EC/14 20:55 Rate is 80 beats/min. Rhythm is regular. CO interval is normal. QRS interval is normal. cp QT interval is normal. Interpreted by me. Reviewed by me. 22:37 Rate is 76 beats/min. Rhythm is regular. CO interval is normal. QRS interval is normal. cp QT interval is normal. T waves are Inverted in lead aVR. Interpreted by me. Reviewed by me. Administered Medications: 22:35 Drug: NS 0.9% 500 ml Route: IV; Rate: 500 ml/hr; Site: right antecubital; jb4 23:07 Not Given (Physician Discretion): Nitroglycerin 0.4 mg Sublingual once cp 23:14 Drug: Tylenol 1000 mg Route: PO; jb4 23:14 Drug: Aspirin Chewable Tablet 324 mg Route: PO; jb4 23:14 Drug: Lopressor (metoprolol TARTRATE)) 25 mg Route: PO; jb4 23:14 Drug: Lopressor (metoprolol) 5 mg Route: IVP; Site: right antecubital; jb4 Disposition: 05/16 06:50 Co-signature as Attending Physician, Hector Simpson MD. mh7 Disposition Summary: 05/15/21 23:53 Transfer Ordered Transfer Location: [facility] cp Reason: Higher level of care cp Condition: Stable cp Problem: new cp Symptoms: have improved cp Accepting Physician: Doctor(05/16/21 02:31) jb4 Diagnosis - Angina pectoris, unspecified cp - Hypertensive heart disease without heart failure cp Forms: - Medication Reconciliation Form cp - SBAR form cp Signatures: Dispatcher [employer] Ciro Ledesma RN RN em Page, Corey, PA PA cp Bryson, James, RN RN jbHector Swanson MD MD mh7 Corrections: (The following items were deleted from the chart) 05/15 22:41 21:39 CORONAVIRUS+.LAB.BRZ ordered. EDMS EDMS 23:53 23:53 Doctor cp cp 05/16 02:31 05/15 23:53 Doctor dylan jb4 05/17 00:27 05/16 00:00 ED course: Vital Signs stable. Patient reports chest pain resolved. cp Discussed admission with Regina Douglas nurse practitioner hospitalist and warehouse technician Ольга, who requested patient be transferred to [facility] for observation for chest pain.. cp
[2021-05-16 02:42] VITALS: TEMP 97.8
[2021-05-16 02:46] VITALS: BP 178/64; O2SAT 98
--- NOTE | 2021-05-17 11:55 | RAD REPORT ---
EXAM DESCRIPTION: CT - Angio Aorta For Dissection - 05/16/2021 6:33 am CLINICAL HISTORY: 65 years, Female, abdomen and back pain;Chest pain COMPARISON: 08/26/2018. TECHNIQUE: Multiple transaxial tomograms from the thoracic and abdominal aorta from the lung apex to the ischial tuberosities performed before and after the administration of large bolus of IV contrast for complete opacification of the thoracic, abdominal aorta and iliac arteries utilizing 3 mm slice thickness at 3 mm interval reconstruction. 2-D and 3-D multiplanar reformats, volume rendering technique and maximum intensity projection images were generated and reviewed. This exam was performed according to our departmental dose-optimization protocol, which includes auto mated exposure control, adjustment of the mA and/or kV according to patient size and/or use of iterat aurora reconstruction technique. FINDINGS: Thoracic aorta: The thoracic aorta demonstrate to be within normal limits. There is no evidence for thoracic aortic d issection. Allowing for motion artifact at the aortic root. The ascending thoracic aorta measured 3.1 cm on image 33. The aortic arch measured 2.3 cm on image 25. The descending thoracic aorta measured 2 cm on image 49. There is normal takeoff of the great vessels with minimal atheromatous plaque formation at the origin of the left subclavian. No focal areas of significant stenosis within the proximal vessels. Abdominal aorta: The abdominal aorta demonstrate very minimal atheromatous plaque formation. There is no evidence for aneurysm/or dissection. The proximal aspect of the abdominal aorta measures 1.8 cm on image 73. The m idportion of the abdominal aorta measures 1.5 cm on image 82. The distal portion of the abdominal aor ta measured 1.2 cm on image 97. The right common iliac artery measures 1 cm, the left iliac artery me asures 1 cm on image 113. The celiac trunk, superior mesenteric artery and inferior mesenteric artery demonstrate to be patent with no evidence for significant stenosis/or occlusion. There are single bilateral renal arteries with minimal atheromatous plaque formation. No significant stenosis. Chest: The lung parenchyma demonstrate stable posterior segment pulmonary nodule right lower lobe og suring 6 mm on image 54, 6 mm pulmonary nodule posterior segment right lower lobe on image 58. Stable 7 mm subpleural pulmonary nodule anterior lateral segment left lower lobe on image 59. No new pulmon arturo nodules are identified. The trachea mainstem bronchus demonstrate to be unremarkable. There is no pleural/or pericardial effusions. The heart is normal in size. There are no significant coronary art cami calcific lesions. There is normal opacification of the pulmonary arteries with no evidence for si gnificant filling defect that would suggest pulmonary embolus. There is no significant mediastinal an d/or hilar lymphadenopathy. The axillary regions demonstrate to be clear. The bone windows demonstrat e no significant skeletal lesions. Abdomen and pelvis: The liver demonstrate decreased attenuation corresponding to fatty filtration. Th ere is a enhancing lesion within the dome of the liver measuring approximately 2.1 cm on image 60 cor responding most likely to a hemangioma, sacrum peripheral nodular enhancing lesion within the medial segment left hepatic lobe inferiorly measured 1.7 cm on image 91 and a small subcapsular posterior se gment right hepatic lobe 0.9 cm lesion on image 79 corresponding most likely to a hemangiomas. The gallbladder, spleen, adrenal glands, pancreas demonstrate to be unremarkable. The kidneys demonstrate normal uptake of contrast media. There is a upper pole left renal cyst measur ing 7.6 x 5.9 cm on image 81. The unopacified stomach demonstrate small hiatal hernia. Otherwise the unopacified stomach,, small xiang wel and large bowel demonstrate to be within normal limits. The appendix is unremarkable. Mild fecal stasis. Minimal diverticulosis sigmoid colon. The urinary bladder demonstrate to be within normal limits. The uterus is unremarkable. There is no retroperitoneal lymphadenopathy. There is no evidence for ascites. The bone windows demonstrate no s ignificant skeletal lesions. IMPRESSION: No evidence for significant filling defect that would suggest pulmonary embolus. No evidence for thoracic or abdominal aortic aneurysm/or dissection. Fatty infiltration of the liver with multiple liver hemangiomas. Left renal cyst. Mild fecal stasis. Minimal diverticulosis sigmoid colon. Small hiatal hernia. Stable pulmonary nodules, unchanged in comparison with 08/26/2018 suggesting benign lesions. Electronically signed by: Diogo Hatch MD 05/16/2021 12:13 AM CDT Due to temporary technical issues with the PACS/Fluency reporting system, reports are being signed by the in house radiologist without review as a courtesy to ensure prompt reporting. The interpreting r adiologist is fully responsible for the content of the report.
== END 2021-05-16 02:31 | disposition short-term general hospital (02) ==
LOC: ER 20:05
DX: I11.9 Hypertensive heart disease without heart failure (principal); I10 Essential (primary) hypertension; Z20.822 Contact with and (suspected) exposure to COVID-19; Z88.0 Allergy status to penicillin
CPT/HCPCS: 93005 ×2; 85025; 80048; 36415; 83735; 85610; 80076; 84484; 83880; 70450; 71275; 74175; 71045; 96374; 99285; U0003; Q9967; J7040; J7050